=== PATIENT | female | born 1950 ===

== ENCOUNTER → 2022-01-19 10:14 | Outpatient (BNVA) | payer MEDICARE, SELFPAY | PROVIDERS: PCP Pediatrics; Visit Provider Internal Medicine | DX: J44.9 Chronic obstructive pulmonary disease, unspecified (principal); R09.02 Hypoxemia; F17.200 Nicotine dependence, unspecified, uncomplicated; Z99.81 Dependence on supplemental oxygen | CPT/HCPCS: 99202 ==

== ENCOUNTER 2022-02-22 09:48 | Outpatient (REF) | payer MEDICARE, SELFPAY ==
--- NOTE | 2022-02-22 15:19 | PFT_ITS ---
INDICATION: Dyspnea. SPIROMETRY: FEV1 to FVC of 56% with an FEV1 of 0.96 L, which is 43% predicted and an FVC of 1.72 L, which is 57% predicted. No significant response to bronchodilators noted. Significant small airways disease noted. Maximum voluntary ventilation 34% predicted. LUNG VOLUMES: Total lung capacity 76% predicted. DIFFUSING CAPACITY: DLCO 27% predicted. COMPARISONS: None. INTERPRETATION: There is an obstructive ventilatory defect consistent with severe COPD. No significant response to bronchodilators noted. Significant small airways disease noted and a severe decrease in maximum voluntary ventilation secondary to likely deconditioning, although cannot rule out neuromuscular conditions. Lung volumes also demonstrate a restrictive ventilatory defect consistent with mild restrictive lung disease. Therefore, need to consider underlying parenchymal lung conditions. The patient has a very severe diffusion impairment, likely secondary to both the obstructive and restrictive conditions. Clinical correlation warranted. Parker Bernal MD MR/MODL / [id number]
== END 2022-02-22 09:49 | disposition home or self-care (01) ==
LOC: HO.RESP 09:48
PROVIDERS: PCP Pediatrics; Visit Provider Internal Medicine
DX: J44.9 Chronic obstructive pulmonary disease, unspecified (principal); F17.200 Nicotine dependence, unspecified, uncomplicated
CPT/HCPCS: 94060; 94727; 94729; 99212

== ENCOUNTER 2022-03-11 13:22 | Outpatient (REF) | payer MEDICARE, SELFPAY ==
--- NOTE | ~2022-03-11 | CT_ITS ---
EXAMINATION: CT CHEST SCREENING CLINICAL INFORMATION: 50 pack-year history. Current smoker. COMPARISON: Previous chest CT January 2019 TECHNIQUE: Multidetector volumetric CT imaging of the chest is performed without contrast using low dose technique. Additional 2D coronal and sagittal reformatted images and axial 3D maximum intensity projection (MIP) images are generated on the CT workstation. This CT examination was performed using dose optimization techniques as appropriate, variously including the following: *Automated exposure control *Adjustment of mA and/or kV according to patient size (this includes techniques or standardized protocols for targeted exams where dose is matched to indication/reason for exam; i.e. extremities or head) *Use of iterative reconstruction technique DLP: 32 mGy-cm FINDINGS: LUNGS: There is evidence of severe bullous emphysema involving the bilateral upper lobes and some of the right middle lobe. There are cystic changes seen in both lower lobes. There is new linear high attenuation seen in the medial right upper lobe adjacent to the mediastinum suggestive of postsurgical change/surgical staple line. There is a new irregular linear parenchymal density seen in the left upper lobe. This measures 5 x 3.5 cm in transverse and AP dimension axial image 348 series 5. This is seen in the inferior lingula along the pleural fissure and is questionable for thick bandlike scarring or subsegmental atelectasis. There is crowding of the lung markings at the lung bases in the right middle and bilateral lower lobes. There is a 3 mm right upper lobe nodule axial image 328 series 5. There is a 3 mm right upper lobe nodule axial image 357 series 5. There is a 4 mm left lower lobe nodule axial image 408 series 5 that is stable. There is an oval-shaped 6 x 10 mm left lower lobe nodule axial image 416 series 5 that is stable. There is a 4 mm left lower lobe nodule axial image 429 series 5 that is stable. There is scarring or subsegmental atelectasis seen at the lung bases. There is mild focal traction bronchiectasis at the lung bases as well. No endobronchial or endotracheal lesion. MEDIASTINUM: There are bilateral calcified thyroid nodules that are stable. There is coronary artery calcification. The thoracic aorta is tortuous. The mediastinum is otherwise normal. PLEURA: There is no pleural effusion. No pleural mass or thickening. AXILLA: No lymphadenopathy. UPPER ABDOMEN: Unremarkable OSSEOUS STRUCTURES: Unremarkable. CT/CT lung screening IMPRESSION: Severe bullous emphysema. New postsurgical changes to the medial right upper lobe. New thick linear bandlike density in the inferior segment of the lingula adjacent to the fissure probably representing scarring or subsegmental atelectasis. Stable left lower lobe pulmonary nodules. 2 new small 3 mm right upper lobe nodules. Coronary artery calcification. ASSESSMENT: Lung-RADS category 2: Benign RECOMMENDATION: Annual low-dose chest CT follow-up recommended.
== END 2022-03-11 13:23 | disposition home or self-care (01) ==
LOC: HO.CT 13:22
PROVIDERS: PCP Pediatrics; Visit Provider Physician Assistant Medical
DX: Z12.2 Encounter for screening for malignant neoplasm of respiratory organs (principal); F17.210 Nicotine dependence, cigarettes, uncomplicated
CPT/HCPCS: 71271; G0296

== ENCOUNTER 2022-06-16 07:33 | Outpatient (REF) | payer MEDICARE, SELFPAY ==
[2022-06-16 07:46] LABS: MANUAL DIFF FLAG NO
[2022-06-16 07:59] LABS: Basophils Percent Auto 0.6 % (0-2); Eosinophils Absolute Auto 0.1 X10*3/uL (0.0-0.4); Eosinophils Percent Auto 0.9 % (0-4); Hematocrit 45.2 % (37.0-47.0); Hemoglobin 15.3 g/dl (12.0-16.0); Imm Gran Abs Auto 0.02 X10*3/uL (0.00-0.03); Imm Gran Pct Auto 0.4 % (0.0-0.4); Immature Retic Fraction 6.5 % (3.0-15.9); Lymphocytes Absolute Auto 1.5 X10*3/uL (1.2-4.9); Mean Corpuscular HGB Conc 33.8 g/dl (31.0-35.0); Mean Corpuscular Hemoglobin 30.6 pg (27.0-33.0); Mean Corpuscular Volume 90.4 fL (80.0-98.0); Mean Platelet Volume 9.6 fL (9.4-12.3); Monocytes Absolute Auto 0.6 X10*3/uL (0.1-1.2); Monocytes Percent Auto 10.7 % (2-11); Neutrophils Absolute Auto 3.2 x10*3/uL (2.0-8.3); Neutrophils Percent Auto 59.4 % (45-73); Platelet Count 295 X10*3/uL (160-400); Red Cell Distribution Width 13.2 % (11.0-16.0); Retic HGB Equivalent 36.4 pg (30.0-35.0); Reticulocyte Percent 1.4 % (0.5-1.8); Reticulocytes Absolute 0.068 X10*6/uL (0.026-0.095); White Blood Count 5.4 X10*3/uL (4.8-10.8)
[2022-06-16 08:12] LABS: Appearance Urine CLEAR; Color Urine YELLOW; Glucose Urine UA NEG (NEG); Leukocyte Esterase Urine 1+ (NEG); Nitrite Urine POS (NEG); PH 5.5 (5.0-8.0); Specific Gravity - Urine >= 1.030 (1.005-1.025); Urine Blood TRACE (NEG); Urine Ketones NEG (NEG); Urine Protein NEG (NEG-TRACE)
[2022-06-16 08:35] LABS: Hyaline Casts Urine 0-2 /LPF; Squamous Epithelial Cell Urine 1+ /LPF
[2022-06-16 08:36] LABS: Bacteria Urine 3+ /LPF
[2022-06-16 08:39] LABS: Alanine Aminotransferase 7 U/L (0-31); Alkaline Phosphatase 60 U/L (39-117); Anion Gap 12 (12-20); Aspartate Amino Transferase 11 U/L (5-31); Bilirubin Total 0.8 mg/dL (0.0-1.0); Blood Urea Nitrogen 14 mg/dL (9-16); Calcium 9.1 mg/dL (8.4-10.2); Carbon Dioxide 23 mmol/L (22-29); Chloride 108 mmol/L (96-108); Cholesterol 195 mg/dL; Estimated Glomerular Filt Rate > 60; Glucose Random 93 mg/dL (60-115); HDL Cholesterol 38 mg/dL; Iron 113 mcg/dL (30-160); LDL Cholesterol Calculated 136 mg/dl; Percent Iron Saturation 48 % (15-50); Potassium 4.3 mmol/L (3.3-5.1); Sodium 139 mmol/L (135-145); Total Iron Binding Capacity 235 mcg/dL (228-428); Total Protein 6.5 g/dL (6.5-8.0); Triglycerides 109 mg/dL; Unsaturated Iron Binding 122 ug/dL
[2022-06-16 09:02] LABS: Ferritin 66 ng/mL (10-250); Free T4 (Free Thyroxine) 1.05 ng/dL (0.71-1.85); Thyroid Stimulating Hormone 1.67 uIU/mL (0.32-4.0); Vitamin D 25-OH Total 21.3 ng/mL (>30)
[2022-06-16 10:24] LABS: Folate 9.2 ng/mL (> or = 4.0); Vitamin B12 315 pg/mL (200-900)
== END 2022-06-16 07:34 | disposition home or self-care (01) ==
LOC: HO.LAB 07:33
PROVIDERS: PCP Internal Medicine; Visit Provider Internal Medicine
DX: J44.9 Chronic obstructive pulmonary disease, unspecified (principal); E78.00 Pure hypercholesterolemia, unspecified
CPT/HCPCS: 36415; 80053; 80061; 81001; 82306; 82607; 82728; 82746; 83540; 84439; 84443; 85025; 85045

== ENCOUNTER 2022-06-21 08:00 | Outpatient (REF) | payer MEDICARE, SELFPAY ==
--- NOTE | ~2022-06-21 | MM_ITS ---
EXAMINATION: BONE DENSITOMETRY CLINICAL INDICATION: Age-related osteoporosis without current pathological fracture. COMPARISON: None (current study represents initial baseline exam). TECHNIQUE: Using a [employer] DXA System (software version: 13.1) manufactured by [employer], dual-energy x-ray absorptiometry was performed of the lumbar spine and left hip. The images are of good technical quality. Summary results are attached. FINDINGS: AP SPINE L1-L4: BMD 1.047 g/cm2, Z-score 1.1, T-score -1.1, osteopenia. LEFT FEMUR, NECK: BMD 0.756 g/cm2, Z-score 0.0, T-score -2.0, osteopenia. LEFT FEMUR, TOTAL: BMD 0.854 g/cm2, Z-score 0.6, T-score -1.2, osteopenia. IDENTIFIED RISK FACTORS: Menopause, tobacco use (current smoker). HISTORY OF FRACTURE: None listed. MEDICATIONS: None listed. MM/XR DEXA axial skeleton IMPRESSION: 1. DIAGNOSIS: Osteopenia based on the lowest T-score value of -2.0 in the femoral neck applying World Health Organization criteria. 2. 10-YEAR FRACTURE RISK PREDICTION, FRAX: Major osteoporotic fracture (clinical spine, forearm, hip or shoulder) 10.6%. Hip fracture 3.6%. 3. Treatment Recommendations: NOF guidelines recommend consideration for treatment in postmenopausal women and men age 50 and older presenting with the following: -A hip or vertebral (clinical or morphometric) fracture. -T-score less than or equal to -2.5 at the femoral neck or spine after appropriate evaluation to exclude secondary causes. -Low bone mass at the hip or spine and a 10-year fracture probability by FRAX of greater than or equal to 3% for hip fracture or greater than or equal to 20% for major osteoporotic fracture based on the [place] adapted WHO algorithm. 4. Other Recommendations: All treatment decisions require clinical judgment and consideration of individual patient factors, including patient preferences, comorbidities, previous drug use, risk factors not captured in the FRAX model (e.g. frailty, falls, vitamin D deficiency, increased bone turnover, interval significant decline in bone density) and possible under or overestimation of fracture risk by FRAX. Additional medical evaluation for secondary cause of low bone mineral density may be appropriate. FUTURE SCAN RECOMMENDATION: People with diagnosed cases of osteoporosis or at high risk for fracture should have regular bone mineral density tests. For patients eligible for Medicare, routine testing is allowed once every 2 years. The testing frequency can be increased to one year for patients who have rapidly progressing disease, those who are receiving or discontinuing medical therapy to restore bone mass, or have additional risk factors.
== END 2022-06-21 08:01 | disposition home or self-care (01) ==
LOC: HO.MAMMO 08:00
PROVIDERS: PCP Internal Medicine; Visit Provider Internal Medicine
DX: Z13.820 Encounter for screening for osteoporosis (principal); M81.0 Age-related osteoporosis without current pathological fracture; Z78.0 Asymptomatic menopausal state
CPT/HCPCS: 77080

== ENCOUNTER → 2022-08-31 10:36 | Outpatient (BNVA) | payer MEDICARE, SELFPAY | PROVIDERS: PCP Internal Medicine; Visit Provider Internal Medicine | DX: J44.9 Chronic obstructive pulmonary disease, unspecified (principal); R06.09 Other forms of dyspnea; R09.02 Hypoxemia; Z99.81 Dependence on supplemental oxygen; Z87.891 Personal history of nicotine dependence | CPT/HCPCS: 99212 ==

== ENCOUNTER → 2023-01-03 10:19 | Outpatient (BNVA) | payer MEDICARE, SELFPAY | PROVIDERS: PCP Internal Medicine; Visit Provider Internal Medicine | DX: J44.9 Chronic obstructive pulmonary disease, unspecified (principal); R91.8 Other nonspecific abnormal finding of lung field; R09.02 Hypoxemia; F17.210 Nicotine dependence, cigarettes, uncomplicated; Z99.81 Dependence on supplemental oxygen | CPT/HCPCS: 99212 ==

== ENCOUNTER → 2023-01-11 07:42 | Outpatient (BNVA) | payer MEDICARE, SELFPAY | PROVIDERS: PCP Internal Medicine; Referring Provider Internal Medicine; Visit Provider Physician Assistant | DX: R19.5 Other fecal abnormalities (principal); J44.9 Chronic obstructive pulmonary disease, unspecified; Z79.899 Other long term (current) drug therapy | CPT/HCPCS: 99202 ==

== ENCOUNTER 2023-04-27 10:40 | Outpatient (REF) | payer MEDICARE, SELFPAY ==
--- NOTE | ~2023-04-27 | MM_ITS ---
EXAMINATION: MM SCREENING DIGITAL BREAST TOMOSYNTHESIS, BILATERAL CLINICAL INFORMATION: Screening. Asymptomatic. The lifetime risk of breast cancer based on the Tyrer-Cuzick Model is is under 5%. COMPARISON: Outside mammography (2-D images): 04/03/2021, 06/01/2019, 03/31/2018 ([place]). TECHNIQUE: Digital breast tomosynthesis is performed in both the craniocaudal and mediolateral oblique views along with computer-aided detection (CAD). Synthesized 2D images are generated from the tomosynthesis. FINDINGS: The breasts are heterogeneously dense, which may obscure small masses (ACR BI-RADS breast composition Category c). Breast tissue composition borders on average fibroglandular and appears decreased from prior outside exams. No abnormal calcifications. The axilla and skin contours are unremarkable. Left breast parenchymal pattern is similar to prior studies. Right MLO view has subtle asymmetry upper quadrant 5 cm from nipple, likely island of fibroglandular tissue among other involuting parenchymal density and/or summation artifact. Patient will be recalled for additional imaging. MM/MM tomosynthesis screening BI IMPRESSION: Right: -Asymmetric density mid upper breast on MLO view likely island of fibroglandular tissue/summation artifact. Left: -No significant changes from prior exam. ASSESSMENT: BI-RADS 0: Incomplete - Need Additional Imaging Evaluation RECOMMENDATION: 1. Additional views right breast (spot MLO, standard ML). 2. Targeted ultrasound if warranted after review of the additional views. 3. Radiology department staff will contact the patient for additional imaging. This patient's information was entered into a reminder system with a target due date for their next mammogram.
== END 2023-04-27 10:41 | disposition home or self-care (01) ==
LOC: HO.MAMMO 10:40
PROVIDERS: Visit Provider Internal Medicine
DX: Z12.31 Encounter for screening mammogram for malignant neoplasm of breast (principal)
CPT/HCPCS: 77063; 77067

== ENCOUNTER 2023-05-22 09:33 | Outpatient (REF) | payer MEDICARE, SELFPAY ==
--- NOTE | ~2023-05-22 | CT_ITS ---
EXAMINATION: CT CHEST WITHOUT CONTRAST CLINICAL INFORMATION: Follow-up pulmonary nodule COMPARISON: Previous chest CT scans most recent February 2022 TECHNIQUE: Multidetector volumetric CT imaging of the chest was done. Axial MIP volume rendering provided. Sagittal and coronal reformatted images were obtained. This CT examination was performed using dose optimization techniques as appropriate, variously including the following: *Automated exposure control *Adjustment of mA and/or kV according to patient size (this includes techniques or standardized protocols for targeted exams where dose is matched to indication/reason for exam; i.e. extremities or head) *Use of iterative reconstruction technique DLP: 88 mGy-cm FINDINGS: LUNGS: Surgical staple line along the medial right upper lobe. Severe bullous emphysema. Right upper lobe is essentially replaced with bullae and there is a compression of the right middle and right lower lobes. There is almost complete replacement of the left upper lobe from bullae. Severe bullous emphysematous changes at the superior segment of the left lower lobe as well. Right diaphragmatic hernia containing fat. There is subsegmental atelectasis at the right lower lobe adjacent to the diaphragm. There is a new linear parenchymal density in the anterior segment of the left upper lobe axial image 166 series 5 probably representing atelectasis. There is a density in the left upper lobe measuring 3 x 5 mm axial image 304 series 5 questionable for atelectasis. There is atelectasis along the left pleural fissure that is stable. There is question of a a new 3 mm left lingular nodule axial image 343 series 5. There is a 4 mm left lower lobe nodule axial image 394 series 5 that is stable. There is a 4 mm peripheral lateral left lower lobe nodule axial image 397 series 5 that is stable. There is a 5 x 7 mm left lower lobe nodule axial image 403 series 5 that is stable. Residual 4 mm left lower lobe nodule axial image 406 series 5 that is stable. There is a 5 mm left lower lobe nodule axial image 416 series 5 that is stable. MEDIASTINUM: Enlarged heterogeneous thyroid gland with multiple calcifications. Enlarged pulmonary arteries, main pulmonary artery measuring 3.2 cm. Atherosclerotic disease. Upper normal-size tortuous thoracic aorta. Normal heart size. Moderate to severe coronary artery calcification. No pericardial effusion. No enlarged hilar or mediastinal lymph nodes. CORONARY ARTERY CALCIFICATION: Moderate to severe PLEURA: There is no pleural effusion. No pleural mass or thickening. AXILLA: No lymphadenopathy. UPPER ABDOMEN: Atherosclerotic disease. OSSEOUS STRUCTURES: Unremarkable. CT/CT chest wo IV con IMPRESSION: Severe bullous emphysema. Question new 3 mm lingular nodule. Otherwise left lower lobe nodules are stable. New areas of probable atelectasis in the left upper lobe. Fleischner guidelines were followed.
== END 2023-05-22 09:34 | disposition home or self-care (01) ==
LOC: HO.CT 09:33
PROVIDERS: PCP Internal Medicine; Visit Provider Internal Medicine
DX: R91.8 Other nonspecific abnormal finding of lung field (principal)
CPT/HCPCS: 71250

== ENCOUNTER → 2023-05-25 13:03 | Outpatient (BNVA) | payer MEDICARE, SELFPAY | PROVIDERS: PCP Internal Medicine; Visit Provider Internal Medicine | DX: J44.9 Chronic obstructive pulmonary disease, unspecified (principal); R91.8 Other nonspecific abnormal finding of lung field; R09.02 Hypoxemia; Z99.81 Dependence on supplemental oxygen | CPT/HCPCS: 99212 ==

== ENCOUNTER 2023-06-15 07:38 | Day surgery (SDC) | payer MEDICARE, SELFPAY ==
[2023-06-12 15:02] VITALS: BMI 20.4
--- NOTE | 2023-06-14 10:28 | HO.ANESPROP2 ---
HPI - Anesthesia Eval Consult details Narrative: 73yo F for Colonoscopy Pulmo optimized Supplemental O2 @ 2L prn PMFSH Active Problems Active Problems: All Active Problems (Updated 06/06/23 @ 10:54 by Chelsy Gallagher MD) Breast cancer screening by mammogram (Acute) Vitamin D deficiency (Acute) Positive colorectal cancer screening using Cologuard test (Acute) Lump of skin of back (Acute) Osteopenia (Acute) Medicare annual wellness visit, initial (Acute) COVID-19 virus infection (Acute) Colon cancer screening declined (Acute) Pulmonary nodules (Acute) Hypoxemia requiring supplemental oxygen (Acute) COPD (chronic obstructive pulmonary disease) (Acute) Past Medical History Medical History (Updated 06/06/23 @ 10:54 by Chelsy Gallagher MD) COPD (chronic obstructive pulmonary disease) Dyspnea on minimal exertion History of pneumothorax (~2018) Hypoxemia requiring supplemental oxygen Personal history of nicotine dependence Quit smoking within past year Tobacco abuse Family History Family History Mother Breast cancer Father Cancer Surgical History Surgical History History of lumpectomy of left breast (~2012) History of lung surgery (~2018) History of tonsillectomy History of tubal ligation (~1979) Social History Social History Housing: Apartment Alcohol intake: never Patient Tobacco Use Status: Former Tobacco user Tobacco use type: Cigarette Years Smoked: (onset 19yo, max 1-2ppd, x 46yrs, quit for 6yr, now 1/2ppd - 60pyh) 7 cigar e-Cigarette/Vaping Use: Never Used Second Hand Smoke Exposure: Yes service: No Current occupational status: retired Cognitive needs: No Hearing needs: No Vision needs: Yes Meds Allergies Allergy/AdvReac Type Severity Reaction Status Date / Time No Known Allergies Allergy Verified 05/25/23 13:25 [No Known Allergies*] Home Medications Medication Instructions Recorded Confirmed Last Taken Type calcium carbonate 600 mg calcium 600 mg PO DAILY 10/17/22 04/19/23 Unknown History (1,500 mg) tablet (Calcium) cholecalciferol (vitamin D3) 50 50 mcg PO DAILY 10/17/22 04/19/23 Unknown History mcg (2,000 unit) capsule Exam Exam Date and Time: June 14, 2023 1028 Height,Weight and Vital Signs: Height 5 ft 4 in Weight 53.977 kg Assessment and Plan Assessment Anesthesia Assessment: Chart Reviewed
[2023-06-15 08:59] VITALS: BP 138/86; PULSE 70; RESP 16; TEMP 37; O2SAT 93; BMI 20.4
--- NOTE | 2023-06-15 09:10 | PC.NURSE ---
Patient in preop. When asked if she has ever filled out paperwork stating she has a DNR order, she stated yes . No paperwork found scanned into computer system. Patient does not have paperwork with her currently. Patient states one of her Health Care Proxy's is her son Dereck, phone [phone]. Anesthesiologist and OR nurse made aware.
[2023-06-15] MEDS: Lactated Ringers 1,000 ML 100 ML IVCONT (09:22)
--- NOTE | 2023-06-15 09:24 | MHC.SHP ---
Pre-Procedural Eval Section A Date of Service: 06/15/23 Section B Chief Complaint: Positive cologuard Details of Present Illness: 73y.o F with positive cologuard in Nov 2022. Hx of advanced COPD. Relevant Social History: Tobacco Use (Former - 60 PY. ) Present Medications: see Short Stay Collaborative assessment Allergies: Allergies Allergy/AdvReac Type Severity Reaction Status Date / Time No Known Allergies Allergy Verified 05/25/23 13:25 [No Known Allergies*] Review of Systems Review of Systems Comment: Ten point ROS negative Exam Exam Comment: Gen appear: No acute distress HEENT: no icterus Chest: No overt resp distress Abd: soft, nontender, nondistended Psych: Stable affect, answering questions appropriately Neuro: A/Ox3 noted to move all extremities spontaneously Ext: no peripheral edema Plan I have reviewed the history and physical and performed a pertinent physical examination on my patient. No changes have occurred unless specified. Time Spent With Patient Time: Total time managing care of this patient today ____ minutes.
--- NOTE | 2023-06-15 10:21 | P.OP_ITS ---
Operative Note Operative Note Date of Service: 06/15/23 Narrative: Procedure: Colonoscopy Indication: Positive cologuard Endoscopist: Gita Bejarano MD Anesthesia Provider: Opal Cross MD Anesthesia type: MAC Instrument: Olympus [id number]-H190L Consent: Indication, risks vs benefits, and alternatives were discussed with the patient who gave written informed consent to proceed. EKG, pulse, pulse oximetry and blood pressure were monitored throughout the procedure. Please see anesthesia flowsheet. Procedure: The patient was brought to the procedure room and placed in the left lateral decubitus position. IV medications were administered by the anesthesia provider in attendance. A digital rectal exam was performed which was abnormal for ext hemorrhoids. The colonoscope was then inserted through the anus and advanced through the colon to the cecum at 75 cm,and terminal ileum. Mucosa was carefully examined under high definition white light as the instrument was slowly withdrawn in a retrograde panoramic fashion. Retroflexion was performed in rectum. The procedure was not difficult. There were no immediate obvious complications. The quality of the prep was BBPS: 3+2+3 = adequate Withdrawal time 15 minutes. Limitations: No limitations. Findings: Mucosa: Normal to cecum and terminal ileum. Protruding lesions: * 1 sessile polyp of size 3 mm in cecum. Cold snare polypectomy was performed. The polyp was completely removed and retrieved. * 1 sessile polyp of size 6 mm in sigmoid colon. Cold snare polypectomy was performed. The polyp was completely removed and retrieved. * Large internal hemorrhoids [without] stigmata of recent bleeding. Excavated lesions: * Diffuse diverticulosis throughout whole colon, L>R. Impression: 1. Normal colon and terminal ileum mucosa 2. Total of 2 polyps removed from cecum and sigmoid colon. 3. External and internal hemorrhoids 4. Diverticulosis Recommendations: - Follow path results. - Future colonoscopy for asymptomatic colorectal cancer screening not recommended due to age and comorbidities.
[2023-06-15 11:06] VITALS: BP 137/81; PULSE 68; RESP 16; TEMP 36.3; O2SAT 93
[2023-06-15 11:21] VITALS: BP 146/76; PULSE 60; RESP 16; TEMP 36.4; O2SAT 98
== END 2023-06-15 11:38 | disposition home or self-care (01) ==
PROVIDERS: PCP Internal Medicine; Visit Provider Internal Medicine
PROC: 0DJD8ZZ Inspection of Lower Intestinal Tract, Via Natural or Artificial Opening Endoscopic (ICD-10-PCS; CPT 45378; principal; 2023-06-15 10:20)
DX: R19.5 Other fecal abnormalities (principal); D12.0 Benign neoplasm of cecum; K63.5 Polyp of colon; K57.30 Diverticulosis of large intestine without perforation or abscess without bleeding; K64.8 Other hemorrhoids; K64.4 Residual hemorrhoidal skin tags; J44.9 Chronic obstructive pulmonary disease, unspecified; R09.02 Hypoxemia; Z99.81 Dependence on supplemental oxygen; R91.8 Other nonspecific abnormal finding of lung field; Z79.51 Long term (current) use of inhaled steroids; Z79.899 Other long term (current) drug therapy; Z87.891 Personal history of nicotine dependence
CPT/HCPCS: 45385; 88305

== ENCOUNTER → 2023-06-15 07:38 | Outpatient (BNV) | payer MEDICARE, SELFPAY | PROVIDERS: PCP Internal Medicine; Visit Provider Internal Medicine | DX: Z12.11 Encounter for screening for malignant neoplasm of colon (principal); R19.5 Other fecal abnormalities; D12.0 Benign neoplasm of cecum; D12.5 Benign neoplasm of sigmoid colon; K57.30 Diverticulosis of large intestine without perforation or abscess without bleeding; K64.8 Other hemorrhoids | CPT/HCPCS: 45385 ==

== ENCOUNTER 2023-06-29 08:15 | Outpatient (AMB) | payer MEDICARE, SELFPAY ==
[2023-06-29 08:20] VITALS: BP 149/70; PULSE 62; BMI 20.7
--- NOTE | 2023-06-29 08:20 | MHC.OFFVIS ---
Intake Vital Signs 06/29/23 08:20 Height 5 ft 4 in Weight 120 lb 13.013 oz BMI 20.7 BP 149/70 H Blood Pressure Location Lt brachial Position Sitting Pulse 62 Intake Visit Reasons: S/P [place]; Dr. Bejarano Intake Note: Wanda presents in office as a est.patient for a post-op for colo PT CC: pt reports having no concerns pt denies any other GI Issues Delinquency Counselor Required: No Accompanied by: Self / Same As Patient Allergies No Known Allergies [No Known Allergies*] Allergy (Verified 06/29/23 08:26) HPI HPI Comments History of Present Illness Details A 73-year-old female follows up after recent screening colonoscopy with polypectomy He tolerated procedure very well She has no GI complaints, normal bowel pattern appetite is good Reviewed procedure report and pathology No nausea, vomiting, hematemesis, hematochezia fever chills PFSH Medical History COPD (chronic obstructive pulmonary disease) Dyspnea on minimal exertion History of pneumothorax (~2018) Hypoxemia requiring supplemental oxygen Personal history of nicotine dependence Quit smoking within past year Tobacco abuse Surgical History History of lumpectomy of left breast (~2012) History of lung surgery (~2018) History of tonsillectomy History of tubal ligation (~1979) Hx of colonoscopy Family History Mother Breast cancer Father Cancer Social History Housing: Apartment Alcohol intake: never Patient Tobacco Use Status: Former Tobacco user Tobacco use type: Cigarette Cigarette Packs Per Day: 1 Cigarettes Per Day: 20.0 Years Smoked: 55 e-Cigarette/Vaping Use: Never Used Second Hand Smoke Exposure: Yes service: No Current occupational status: retired Cognitive needs: No Hearing needs: No Vision needs: Yes Review of Systems Const All systems reviewed & are unremarkable except as noted in HPI and below Card Denies chest pain and Denies dyspnea Resp Denies dyspnea GI Denies abdominal pain Physical Exam Vital Signs: Last Vital Signs Pulse 62 06/29/23 08:20 BP 149/70 H 06/29/23 08:20 BMI result Body Mass Index 20.7 Const General: cooperative, healthy appearing, comfortable and no acute distress Orientation/consciousness: patient oriented x3 Resp Effort & Inspection: normal respiratory effort and able to speak in complete sentences Skin General skin exam: no rashes or lesions noted Neuro General: patient oriented x3 Extrem General: Yes full ROM Psych Appearance: grossly normal and well kempt Mental Status: mental status grossly normal Speech and movement: Normal speech and movement present and Clear speech present Affect: normal affect Attitude: cooperative Thought process: Normal thought process present Thought content: Normal thought content present Insight: Good insight present (Psych) Judgement: Good judgement present (Psych) Results Reviewed Results Reviewed: imitations: No limitations.? Findings: Mucosa: Normal to cecum and terminal ileum. Protruding lesions: 1 sessile polyp of size 3 mm in cecum. Cold snare polypectomy was performed. The polyp was completely removed and retrieved. 1 sessile polyp of size 6 mm in sigmoid colon. Cold snare polypectomy was performed. The polyp was completely removed and retrieved. Large internal hemorrhoids [without] stigmata of recent bleeding. Excavated lesions: Diffuse diverticulosis throughout whole colon, L>R. Impression: 1. Normal colon and terminal ileum mucosa 2. Total of 2 polyps removed from cecum and sigmoid?colon. 3. External and internal hemorrhoids 4. Diverticulosis Recommendations: - Follow path results. - Future colonoscopy for asymptomatic colorectal cancer screening not recommended due to age and comorbidities. Name:?Wanda Patino Age/Sex: 73/F Attending: Gita Bejarano MD : 1950 Submitted by: Gita Bejarano MD Copies to: Chelsy Gallagher MD MR #: [id number] ? Status: DEP [facility] Collected: 06/15/23 Location: [facility] [[email or web address]] Received: 06/15/23 Diagnosis A.? Cecum, polypectomy:? Fragments of tubular adenoma; negative for high-grade dysplasia or carcinoma. B.? Colon, sigmoid, polypectomy:? Hyperplastic mucosal polyp. Clinical History Pre-Op Dx:? Positive cologuard Post-Op Dx: Hemorrhoids, colon polyps, diverticulosis Assessment & Plan Assessment & Plan (1) Positive colorectal cancer screening using Cologuard test: Comment: November 2022- Colonoscopy- tubular adenoma hemorrhoids Code(s): R19.5 - Other fecal abnormalities (2) Tubular adenoma: Code(s): D36.9 - Benign neoplasm, unspecified site Plan: 5 year repeat - health determines (3) Diverticulosis of colon: Code(s): K57.30 - Diverticulosis of large intestine without perforation or abscess without bleeding (4) Internal hemorrhoids: Code(s): K64.8 - Other hemorrhoids Plan: Maintain high-fiber diet avoid straining Patient Instructions: Pleasant, alert, healthy 73-year-old female follows up after recent colonoscopy with polypectomy pathology revealing tubular adenoma Health determine, repeat asymptomatic colonoscopy 5 years Maintain high-fiber diet with diverticulosis as well as Internal hemorrhoids. Diverticulosis/diverticulitis ER protocol Coding Level of Care Code Est Pt Level 3 (70375) Diagnoses Positive colorectal cancer screening using Cologuard test R19.5 Tubular adenoma D36.9 Diverticulosis of colon K57.30 Internal hemorrhoids K64.8 Time Spent (min) 25
== END 2023-06-29 08:48 | disposition home or self-care (01) ==
PROVIDERS: Visit Provider Physician Assistant
DX: R19.5 Other fecal abnormalities (principal); D36.9 Benign neoplasm, unspecified site; K57.30 Diverticulosis of large intestine without perforation or abscess without bleeding; K64.8 Other hemorrhoids
CPT/HCPCS: 99213

== ENCOUNTER → 2023-06-29 08:15 | Outpatient (BNVA) | payer MEDICARE, SELFPAY | PROVIDERS: Visit Provider Physician Assistant | DX: R19.5 Other fecal abnormalities (principal); D36.9 Benign neoplasm, unspecified site; K57.30 Diverticulosis of large intestine without perforation or abscess without bleeding; K64.8 Other hemorrhoids | CPT/HCPCS: 99212 ==

== ENCOUNTER 2023-10-23 10:41 | Outpatient (AMB) | payer MEDICARE, SELFPAY ==
[2023-10-23 10:43] VITALS: BP 142/80; PULSE 97; O2SAT 99; BMI 21.1
--- NOTE | 2023-10-23 10:43 | AM.OFFVISMDC ---
Intake Vital Signs 10/23/23 10:43 Height 5 ft 4 in Weight 123 lb 0.6 oz BMI 21.1 BP 142/80 H Blood Pressure Location Lt brachial Position Sitting Pulse 97 Pulse Source Pulse Oximeter Pulse Oximetry (%) 99 Oxygen Delivery Method Room Air Intake Visit Reasons: SWV [id number] Intake Note: Patient is here for an Annual Wellness Visit. [employer] Required: No Allergies No Known Allergies [No Known Allergies*] Allergy (Verified 10/23/23 10:54) Fall Risk Assessment Fall risk assessment: No Falls in past year Date Fall Risk Assessed: 10/23/23 HPI HPI Comments History of Present Illness Details 73-year-old female past medical history significant for vitamin-D deficiency, osteopenia, pulmonary nodules, COPD, hypoxemia requiring supplemental O2. 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 TRIMBLE presents today for subsequent annual well visit. Patient up-to-date on all necessary health screenings. Declined, TD shot. UTD on flu and pna. [place] of care was reviewed with patient patient was provided with a written screening schedule. Patient states she has a healthcare proxy, encouraged to bring copy to office to be scanned to chart. Patient provided with MOLST form. [facility] Medical History COPD (chronic obstructive pulmonary disease) Dyspnea on minimal exertion History of pneumothorax (~2018) Hypoxemia requiring supplemental oxygen Personal history of nicotine dependence Quit smoking within past year Tobacco abuse Surgical History History of lumpectomy of left breast (~2012) History of lung surgery (~2018) History of tonsillectomy History of tubal ligation (~1979) Hx of colonoscopy Family History Mother Breast cancer Father Cancer Social History Housing: Apartment Alcohol intake: never Patient Tobacco Use Status: Former Tobacco user Tobacco use type: Cigarette Cigarette Packs Per Day: 1 Cigarettes Per Day: 20.0 Years Smoked: 55 e-Cigarette/Vaping Use: Never Used Second Hand Smoke Exposure: Yes service: No Current occupational status: retired Cognitive needs: No Hearing needs: No Vision needs: Yes Questionnaire Medicare Wellness Checkup [age] What gender do you identify with?: female During the past 4 weeks, how much have you been bothered by emotional problems such as feeling anxious, depressed, irritable, sad or downhearted, and blue?: not at all During the past 4 weeks, has your physical & emotional health limited your social activities with family, friends, neighbors, or groups?: not at all During the past 4 weeks, how much bodily pain have you generally had?: very mild pain During the past 4 weeks, was someone available to help you if you needed & wanted help?: yes, quite a bit During the past 4 weeks, what was the hardest physical activity you could do for at least 2 minutes?: moderate Can you get to places out of walking distance without help? (For eg., can you travel alone on buses, taxis or drive your car?): Yes Can you go shopping for groceries or clothes without someone's help?: Yes Can you prepare your own meals?: Yes Can you do your housework without help?: Yes Because of any health problems, do you need the help of another person with your personal care needs such as eating, bathing, dressing or getting around the house?: No Can you handle your own money without help?: Yes During the past 4 weeks, how would you rate your health in general?: very good During the past 4 weeks how have things been going for you?: pretty well Are you having difficulties driving your car?: no Do you always fasten your seat belt when you are in a car?: yes, usually During past 4 weeks, have you been bothered by the following: never: Falling or dizzy when standing up, Sexual problems?, Trouble eating well? and Problems using the telephone? and sometimes: Teeth or denture problems? and Tiredness or fatigue? Have you fallen 2 or more times in the past year?: No Are you afraid of falling?: No Are you a smoker?: no During the past 4 weeks, how many drinks of wine, beer, or other alcoholic beverages did you have?: no alcohol at all Do you exercise for about 20 minutes 3 or more times a week?: no, I usually do not exercise this much Have you been given information to help with the following?: no: Hazards in your house that might hurt you? and no: Keeping track of your medications? How often do you have trouble taking medicines the way you have been told to take them?: I always take medicine as prescribed How confident are you that you can control & manage most of your health problems?: very confident What is your race?: White Mini Mental State Exam (MMSE) Orientation What is the (year) (season) (date) (day) (month)?: year, season, date, day and month Score Score: 5 Activity of Daily Living Bathing - sponge bath, tub bath or shower: receives no assistance (gets in/out by self, if usual bathing means Dressing - getting clothes from closets & drawers, including inner/outer garments & fasteners.: gets clothes & gets completely dressed without help Toileting - going to the 'toilet room' for urine/bowel elimination & cleaning self/arranging clothes: goes to toilet room, cleans self, arranges clothes without help Transfer: moves in & out of bed and chair without help (may use support object) Continence: controls urination/bowel movements completely by self Feeding: feeds self without help Total Score: 0 Information obtained from: patient Using telephone: independent Traveling: independent Shopping: independent Preparing meals: independent Housework: independent Taking medicine: independent Managing money: independent PHQ-9 Over the last 2 weeks, how often have you been bothered by any of the following problems? 1. Little interest or pleasure in doing things: not at all 2. Feeling down, depressed, or hopeless: not at all 3. Trouble falling or staying asleep, or sleeping too much: not at all 4. Feeling tired or having little energy: several days 5. Poor appetite or overeating: not at all 6. Feeling bad about yourself - or that you are a failure or have let yourself or your family down: not at all 7. Trouble concentrating on things, such as reading the newspaper or watching television: not at all 8. Moving or speaking so slowly that other people could have noticed. Or the opposite - being so fidgety or restless that you have been moving around a lot more than usual: not at all 9. Thoughts that you would be better off or of hurting yourself in some way: not at all Total score: 1 Depression Screening Interpretation: Positive Depression Screening Done: Yes 97998 - PHQ-9 Billing: Yes Source: Developed by Drs. Brody Fitch, Curtis Ni and colleagues, with an educational lane from [employer]. GEOFF-7 AMB Questionnaire GEOFF-7 Date GEOFF - 7 assessed: 10/23/23 Feeling nervous, anxious, or on edge: 0 = Not at all Not being able to stop or control worryin = Not at all Worrying too much about different things: 0 = Not at all Trouble relaxin = Not at all Being so restless that it is hard to sit still: 0 = Not at all Becoming easily annoyed or irritable: 0 = Not at all Feeling afraid as if something awful might happen: 0 = Not at all Total GEOFF-7 score (0-4 normal; 5-9 mild; 10-14 moderate; 15-21 severe): 0 Source: Developed by Drs. Brody Fitch, Curtis Ni and colleagues, with an educational lane from [employer]. Thrive Questionnaire Date Thrive assessed: 11/22/22 Physical Exam Vital Signs: Last Vital Signs Pulse 97 10/23/23 10:43 BP 142/80 H 10/23/23 10:43 Pulse Ox 99 10/23/23 10:43 Oxygen Delivery Method Room Air 10/23/23 10:43 BMI result Body Mass Index 21.1 Const General: cooperative and no acute distress Orientation/consciousness: patient oriented x3 HEENT Ears: other (whisper test: pass) Neuro General: patient oriented x3 Gait exam (Neuro): Normal gait present Coordination: tandem gait normal and Romberg test negative Assessment & Plan Assessment & Plan (1) COPD (chronic obstructive pulmonary disease): Comment: (severe obstructive pulmonary disease - stable and controlled) May [address]23 CT scanSevere bullous emphysema. Question new 3 mm lingular nodule. Otherwise left lower lobe nodules are stable. New areas of probable atelectasis in the left upper lobe. Tx : Continue Trelegy 1 inhalation daily and Combivent Respimat 1 inhalation Q 6 hours p.r.n. for acute distress. Code(s): J44.9 - Chronic obstructive pulmonary disease, unspecified Plan: Continue to follow-up pulmonology. Continue on current inhalers. (2) Medicare annual wellness visit, subsequent: Code(s): Z00.00 - Encounter for general adult medical examination without abnormal findings Plan: Follow-up in 1 year. Patient reminded to get previously ordered blood work completed. Plan Patient declined follow-up in 6 months would like to be scheduled for 1 year. Quality Reporting (2019) Fall Risk Screening ([facility] 139) Last assessed Fall Risk: 10/23/23 Fall risk assessment: No Falls in past year Depression/Bipolar (159/160/161/177) PHQ-9: Total score: 1 Coding Level of Care Code Medicare Subsequent (G0439) Diagnoses COPD (chronic obstructive pulmonary disease) J44.9 Medicare annual wellness visit, subsequent Z00.00
== END 2023-10-23 11:17 | disposition home or self-care (01) ==
PROVIDERS: Visit Provider Nurse Practitioner Family
DX: J44.9 Chronic obstructive pulmonary disease, unspecified (principal); Z00.00 Encounter for general adult medical examination without abnormal findings
CPT/HCPCS: G0439

== ENCOUNTER 2023-10-31 09:19 | Outpatient (AMB) | payer MEDICARE, SELFPAY ==
--- NOTE | 2023-10-31 09:29 | A.OFFVIS_ITS ---
Intake Vital Signs 10/31/23 09:31 Height 5 ft 4 in Weight 122 lb BMI 20.9 BP 112/78 Blood Pressure Location Lt brachial Position Sitting Pulse 68 Pulse Source Pulse Oximeter Pulse Oximetry (%) 94 Oxygen Delivery Method Room Air Intake Visit Reasons: COPD Intake Note: pt is here for follow up and states her breathing is getting bad. [employer] Required: No Allergies No Known Allergies [No Known Allergies*] Allergy (Verified 10/31/23 09:38) Medication List - Last Reconciled 10/31/23 by Bhakti Garcia MD calcium carbonate (Calcium) 600 mg PO DAILY cholecalciferol (vitamin D3) 50 mcg PO DAILY ipratropium-albuterol 20-100 mcg/actuation (Combivent Respimat) 1 puff inhalation Q6H PRN Trelegy Ellipta 100-62.5-25 mcg (mhikdsajmye-aqxvgtpen-sapmehjv) 1 ea inhalation DAILY NS Do you need a note to return to daycare/school/sports/work: No HPI COPD HPI Details 73 YEARS OLD VERY PLEASANT FEMALE OF A [place], BEING FOLLOWED FOR ADVANCED CHRONIC OBSTRUCTIVE PULMONARY DISEASE. SHE USES TRELEGY 1 INHALATION DAILY AND ALSO COMBIVENT RESPIMAT 1 PUFF Q 6 HOURS P.R.N.. SHE HAS BEEN FREE OF ANY ACUTE INFECTION, SHE FEELS THAT GRADUALLY HER STRENGTH IS WEAKENING AND SHE GETS MORE SHORT OF BREATH ON WALKING AROUND IN THE HOUSE. HOWEVER SHE HAS NO SIGN OF ANY INFECTION, SHE HAS NOT REQUIRED TO USE OXYGEN SO FOR. [facility] Medical History Quit smoking within past year Dyspnea on minimal exertion Tobacco abuse History of pneumothorax (~2018) Personal history of nicotine dependence Hypoxemia requiring supplemental oxygen COPD (chronic obstructive pulmonary disease) Surgical History Hx of colonoscopy History of tubal ligation (~1979) History of lumpectomy of left breast (~2012) History of tonsillectomy History of lung surgery (~2018) Family History Mother Breast cancer Father Cancer Social History Housing: Apartment Alcohol intake: never Patient Tobacco Use Status: Former Tobacco user Tobacco use type: Cigarette Cigarette Packs Per Day: 1 Cigarettes Per Day: 20.0 Years Smoked: 55 e-Cigarette/Vaping Use: Never Used Second Hand Smoke Exposure: Yes service: No Current occupational status: retired Cognitive needs: No Hearing needs: No Vision needs: Yes Review of Systems Const All systems reviewed & are unremarkable except as noted in HPI and below Eyes Reports no additional complaints ENT Reports no additional complaints Card Denies chest pain, Denies irregular heart rhythm and Denies leg edema Resp Reports as per HPI GI Reports no additional complaints Reports no additional complaints Musc Reports no additional complaints Skin/Breast Reports system reviewed and no additional complaints, except as documented Neuro Reports no additional complaints Psych Reports no additional complaints Endo Reports no additional complaints Physical Exam Vital Signs: Last Vital Signs Pulse 68 10/31/23 09:31 BP 112/78 10/31/23 09:31 Pulse Ox 94 10/31/23 09:31 Oxygen Delivery Method Room Air 10/31/23 09:31 BMI result Body Mass Index 20.9 Const Other: Patient is of a thin build and looks comfortable, active . General: comfortable, no acute distress, alert and awake Orientation/consciousness: patient oriented x3 HEENT Head: Yes normal to inspection General nose exam: No nasal polyps present and No nasal discharge present Face and sinus: Yes sinuses nontender Mouth: oropharynx normal Teeth and gingiva: other (Multiple fillings and if you extractions are noted) Throat: Yes posterior oropharynx normal Eyes General: appearance normal, both eyes and all related structures Neck Neck: Yes normal visual inspection, Yes no lymphadenopathy, Yes trachea midline and Yes no JVD Thyroid: Thyroid normal Chest Chest palpation & inspection: normal inspection of the chest, normal palpation of entire chest wall and no tenderness Resp Other: Percussion note hyper-resonant on both sides. Breath sounds are very distant with prolonged expiratory phase but equal on both sides. No adventitious sounds are heard. Cardio Palpation: normal PMI Rate: regular rate Rhythm: regular rhythm Heart sounds: no gallops and no murmurs Peripheral pulses: Peripheral pulses 2+ throughout GI Palpation (GI): Soft to palpation, nontender, No hepatosplenomegaly present and no masses Auscultation: normal bowel sounds Back/Spine/Pelvis Thoracic/Lumbar Spine: thoracic and lumbar spine normal to inspection Skin General skin exam: no rashes or lesions noted Neuro General: patient oriented x3 and no focal motor deficits Cranial nerves: Yes CN's II-XII intact bilaterally Extrem General: Yes normal to inspection, Yes no clubbing, cyanosis or edema and Yes no calf tenderness Psych Appearance: grossly normal and well kempt Speech and movement: Normal speech and movement present Assessment & Plan Assessment & Plan (1) COPD (chronic obstructive pulmonary disease): Comment: (severe obstructive pulmonary disease - stable and controlled) May [address]23 CT scanSevere bullous emphysema. Question new 3 mm lingular nodule. Otherwise left lower lobe nodules are stable. New areas of probable atelectasis in the left upper lobe. Code(s): J44.9 - Chronic obstructive pulmonary disease, unspecified Plan: Tx : Continue Trelegy 1 inhalation daily and Combivent Respimat 1 inhalation Q 6 hours p.r.n. for acute distress. I REASSURED HER AND EXPLAINED THAT HER RESPIRATORY STATUS WAS FAIRLY STABLE AT THIS TIME. HAS BEEN ADVISED TO DO DEEP BREATHING EXERCISES 2 OR 3 TIMES A DAY. DISCUSSED ABOUT PULMONARY REHAB PROGRAM, BUT SHE IS NOT INCLINED TO PARTICIPATE IN THAT AT THIS TIME. (2) Hypoxemia requiring supplemental oxygen: Comment: (on O2 supplementation for the last few years but HAS NOT been using O2 most of the time -advised her to use O2 2 L/minute during the night, and p.r.n. during the daytime.) Code(s): R09.02 - Hypoxemia; Z99.81 - Dependence on supplemental oxygen Plan: ABOVE (3) Pulmonary nodules: Comment: February 2022 CT scan,Benign class-2 Code(s): R91.8 - Other nonspecific abnormal finding of lung field Plan: WILL CONTINUE IN THE ANNUAL LUNG SCREENING PROGRAM Coding Level of Care Code Est Pt Level 3 (34286) Diagnoses COPD (chronic obstructive pulmonary disease) J44.9 Hypoxemia requiring supplemental oxygen R09.02; Z99.81 Pulmonary nodules R91.8
[2023-10-31 09:31] VITALS: BP 112/78; PULSE 68; O2SAT 94; BMI 20.9
== END 2023-10-31 09:47 | disposition home or self-care (01) ==
PROVIDERS: PCP Internal Medicine; Visit Provider Internal Medicine
DX: J44.9 Chronic obstructive pulmonary disease, unspecified (principal); R09.02 Hypoxemia; Z99.81 Dependence on supplemental oxygen; R91.8 Other nonspecific abnormal finding of lung field
CPT/HCPCS: 99213

== ENCOUNTER → 2023-10-31 09:19 | Outpatient (BNVA) | payer MEDICARE, SELFPAY | PROVIDERS: PCP Internal Medicine; Visit Provider Internal Medicine | DX: J44.9 Chronic obstructive pulmonary disease, unspecified (principal); R91.8 Other nonspecific abnormal finding of lung field; R09.02 Hypoxemia; Z99.81 Dependence on supplemental oxygen | CPT/HCPCS: 99212 ==

== ENCOUNTER 2023-11-07 07:38 | Outpatient (REF) | payer MEDICARE, SELFPAY ==
[2023-11-07 07:54] LABS: MANUAL DIFF FLAG NO
[2023-11-07 08:47] LABS: Basophils Percent Auto 0.6 % (0-2); Eosinophils Absolute Auto 0.1 X10*3/uL (0.0-0.4); Eosinophils Percent Auto 1.9 % (0-4); Hematocrit 45.1 % (37.0-47.0); Hemoglobin 14.9 g/dl (12.0-16.0); Imm Gran Abs Auto 0.02 X10*3/uL (0.00-0.03); Imm Gran Pct Auto 0.4 % (0.0-0.4); Lymphocytes Absolute Auto 1.3 X10*3/uL (1.2-4.9); Mean Corpuscular Hemoglobin 30.7 pg (27.0-33.0); Mean Corpuscular Volume 92.8 fL (80.0-98.0); Mean Platelet Volume 9.8 fL (9.4-12.3); Monocytes Absolute Auto 0.5 X10*3/uL (0.1-1.2); Monocytes Percent Auto 10.8 % (2-11); Neutrophils Absolute Auto 2.7 x10*3/uL (2.0-8.3); Neutrophils Percent Auto 59.3 % (45-73); Platelet Count 339 X10*3/uL (160-400); Red Blood Count 4.86 X10*6/uL (4.20-5.50); Red Cell Distribution Width 12.5 % (11.0-16.0); White Blood Count 4.6 X10*3/uL (4.8-10.8)
[2023-11-07 09:26] LABS: Alanine Aminotransferase 10 U/L (0-31); Alkaline Phosphatase 53 U/L (39-117); Anion Gap 11 (12-20); Aspartate Amino Transferase 15 U/L (5-31); Bilirubin Total 0.7 mg/dL (0.0-1.0); Blood Urea Nitrogen 14 mg/dL (9-16); Calcium 9.5 mg/dL (8.4-10.2); Carbon Dioxide 28 mmol/L (22-29); Chloride 109 mmol/L (96-108); Cholesterol 210 mg/dL (<200); Estimated Glomerular Filt Rate > 60; Glucose Random 88 mg/dL (60-115); HDL Cholesterol 43 mg/dL (>40); LDL Cholesterol Calculated 150 mg/dL (<100); Potassium 4.3 mmol/L (3.3-5.1); Sodium 144 mmol/L (135-145); Total Protein 6.7 g/dL (6.5-8.0); Triglycerides 85 mg/dL (<150)
[2023-11-07 09:30] LABS: Thyroid Stimulating Hormone 1.33 uIU/mL (0.32-4.0); Vitamin D 25-OH Total 47.7 ng/mL (>30)
[2023-11-07 09:51] LABS: Folate 8.9 ng/mL (> or = 4.0); Vitamin B12 423 pg/mL (200-900)
[2023-11-09 09:27] LABS: Rubeola IgG (Measles) >300.00 AU/mL
== END 2023-11-07 07:39 | disposition home or self-care (01) ==
LOC: HO.LAB 07:38
PROVIDERS: PCP Internal Medicine; Visit Provider Internal Medicine
DX: Z02.0 Encounter for examination for admission to educational institution (principal); R19.5 Other fecal abnormalities; E78.00 Pure hypercholesterolemia, unspecified
CPT/HCPCS: 36415; 80053; 80061; 82306; 82607; 82746; 84439; 84443; 85025; 86765

== ENCOUNTER 2024-01-30 09:24 | Outpatient (AMB) | payer MEDICARE, SELFPAY ==
--- NOTE | 2024-01-30 09:29 | MHC.OFFVIS ---
Intake Vital Signs 01/30/24 09:30 Height 5 ft 4 in Weight 121 lb 4.068 oz BMI 20.8 BP 120/82 Blood Pressure Location Lt brachial Position Sitting Pulse 57 Pulse Source Pulse Oximeter Pulse Oximetry (%) 89 L Oxygen Delivery Method Room Air Intake Visit Reasons: COPD Intake Note: pt is her for follow up and states she feels the same, pt nees a refill on Telegy sent in. Allergies No Known Allergies [No Known Allergies*] Allergy (Verified 01/30/24 09:33) Medication List - Last Reconciled 01/30/24 by Bhakti Garcia MD calcium carbonate (Calcium) 600 mg PO DAILY cholecalciferol (vitamin D3) 50 mcg PO DAILY fkkekjsnswx-jckruusrk-ypkoeysu 100-62.5-25 mcg (Trelegy Ellipta) 1 ea PO DAILY ipratropium-albuterol 20-100 mcg/actuation (Combivent Respimat) 1 puff inhalation Q6H PRN Do you need a note to return to daycare/school/sports/work: No HPI COPD HPI Details 73 years old very pleasant female is a case of advanced chronic obstructive pulmonary disease. She has moved from the 2nd floor to the 1st floor and it makes it very easy for her. Breathing is holding very stable and luckily she has had no respiratory infection. She is doing well just with Trelegy 1 inhalation daily, and hardly needs to use the rescue inhaler( Combivent Respimat) She has O2 concentrator at home but uses O2 only if she feels more short of breath or tired. She is somewhat stronger. And more energetic than before Weight is being maintained, though she remains of a thin build. [facility] Medical History Quit smoking within past year Dyspnea on minimal exertion Tobacco abuse History of pneumothorax (~2018) Personal history of nicotine dependence Hypoxemia requiring supplemental oxygen COPD (chronic obstructive pulmonary disease) Surgical History Hx of colonoscopy History of tubal ligation (~1979) History of lumpectomy of left breast (~2012) History of tonsillectomy History of lung surgery (~2018) Family History Mother Breast cancer Father Cancer Social History Housing: Apartment Alcohol intake: never Patient Tobacco Use Status: Former Tobacco user Tobacco use type: Cigarette Cigarette Packs Per Day: 1 Cigarettes Per Day: 20.0 Years Smoked: 55 e-Cigarette/Vaping Use: Never Used Second Hand Smoke Exposure: Yes service: No Current occupational status: retired Cognitive needs: No Hearing needs: No Vision needs: Yes Review of Systems Const All systems reviewed & are unremarkable except as noted in HPI and below Eyes Reports no additional complaints ENT Reports no additional complaints Card Denies chest pain, Denies irregular heart rhythm and Denies leg edema Resp Reports as per HPI GI Reports no additional complaints Reports no additional complaints Musc Reports no additional complaints Skin/Breast Reports system reviewed and no additional complaints, except as documented Neuro Reports no additional complaints Psych Reports no additional complaints Endo Reports no additional complaints Physical Exam Vital Signs: Last Vital Signs Pulse 57 01/30/24 09:30 BP 120/82 01/30/24 09:30 Pulse Ox 89 L 01/30/24 09:30 Oxygen Delivery Method Room Air 01/30/24 09:30 BMI result Body Mass Index 20.8 Const Other: Patient is of a thin build and looks comfortable, active . General: comfortable, no acute distress, alert and awake Orientation/consciousness: patient oriented x3 HEENT Head: Yes normal to inspection General nose exam: No nasal polyps present and No nasal discharge present Face and sinus: Yes sinuses nontender Mouth: oropharynx normal Teeth and gingiva: other (Multiple fillings and if you extractions are noted) Throat: Yes posterior oropharynx normal Eyes General: appearance normal, both eyes and all related structures Neck Neck: Yes normal visual inspection, Yes no lymphadenopathy, Yes trachea midline and Yes no JVD Thyroid: Thyroid normal Chest Chest palpation & inspection: normal inspection of the chest, normal palpation of entire chest wall and no tenderness Resp Other: Percussion note hyper-resonant on both sides. Breath sounds are very distant with prolonged expiratory phase but equal on both sides. No adventitious sounds are heard. Cardio Palpation: normal PMI Rate: regular rate Rhythm: regular rhythm Heart sounds: no gallops and no murmurs Peripheral pulses: Peripheral pulses 2+ throughout GI Palpation (GI): Soft to palpation, nontender, No hepatosplenomegaly present and no masses Auscultation: normal bowel sounds Back/Spine/Pelvis Thoracic/Lumbar Spine: thoracic and lumbar spine normal to inspection Skin General skin exam: no rashes or lesions noted Neuro General: patient oriented x3 and no focal motor deficits Cranial nerves: Yes CN's II-XII intact bilaterally Extrem General: Yes normal to inspection, Yes no clubbing, cyanosis or edema and Yes no calf tenderness Psych Appearance: grossly normal and well kempt Speech and movement: Normal speech and movement present Assessment & Plan Assessment & Plan (1) COPD (chronic obstructive pulmonary disease): Comment: (severe obstructive pulmonary disease - stable and controlled) May 2023 CT scan Severe bullous emphysema. Code(s): J44.9 - Chronic obstructive pulmonary disease, unspecified Plan: Continue to use Trelegy 1 inhalation daily Combivent Respimat 1 inhalation Q 6 hours only p.r.n.. (2) Hypoxemia requiring supplemental oxygen: Comment: She has history of exercise induced hypoxemia. Does have O2 concentrator and also portable cylinders at home. However she has used O2 only once in a while. Code(s): R09.02 - Hypoxemia; Z99.81 - Dependence on supplemental oxygen Plan: Use O2 2 L/minute p.r.n. if O2 sat falls below 90 or if there is an increased shortness of breath (3) Pulmonary nodules: Comment: February 2022 CT scan, Benign class-2 Code(s): R91.8 - Other nonspecific abnormal finding of lung field Plan: Continue regular annual follow-up. Medications: Refilled owcrnyoqibi-bwkxtckce-njmrxjqz 100-62.5-25 mcg (Trelegy Ellipta) 1 ea PO DAILY 60 ea 5RF COPD J44.9 - Chronic obstructive pulmonary disease, unspecified Coding Level of Care Code Est Pt Level 3 (49704) Diagnoses COPD (chronic obstructive pulmonary disease) J44.9 Hypoxemia requiring supplemental oxygen R09.02; Z99.81 Pulmonary nodules R91.8
[2024-01-30 09:30] VITALS: BP 120/82; PULSE 57; O2SAT 89; BMI 20.8
== END 2024-01-30 09:42 | disposition home or self-care (01) ==
PROVIDERS: PCP Internal Medicine; Visit Provider Internal Medicine
DX: J44.9 Chronic obstructive pulmonary disease, unspecified (principal); R09.02 Hypoxemia; Z99.81 Dependence on supplemental oxygen; R91.8 Other nonspecific abnormal finding of lung field
CPT/HCPCS: 99213

== ENCOUNTER → 2024-01-30 09:24 | Outpatient (BNVA) | payer MEDICARE, SELFPAY | PROVIDERS: PCP Internal Medicine; Visit Provider Internal Medicine | DX: J44.9 Chronic obstructive pulmonary disease, unspecified (principal); R91.8 Other nonspecific abnormal finding of lung field; R09.02 Hypoxemia; Z99.81 Dependence on supplemental oxygen | CPT/HCPCS: 99212 ==

== ENCOUNTER 2024-04-11 08:30 | Outpatient (REF) | payer MEDICARE, SELFPAY ==
--- NOTE | ~2024-04-11 | CT_ITS ---
EXAMINATION: CT LOW-DOSE SCREENING CHEST WITHOUT CONTRAST CLINICAL INFORMATION: Personal history of nicotine dependence. The patient is a current smoker with a 50 pack-year history of smoking. COMPARISON: CT chest 05/22/2023. Chest x-ray 04/12/2019. TECHNIQUE: Multidetector volumetric CT imaging of the chest is performed on a Siemens SOMATOM Definition scanner without contrast using low-dose technique. Additional 2D coronal and sagittal reformatted images and axial 3D maximum intensity projection (MIP) images are generated on the CT workstation. This CT examination was performed using dose optimization techniques as appropriate, variously including the following: *Automated exposure control *Adjustment of mA and/or kV according to patient size (this includes techniques or standardized protocols for targeted exams where dose is matched to indication/reason for exam; i.e. extremities or head) *Use of iterative reconstruction technique TOTAL EXAM DLP: 35 mGy-cm. CTDIvol: 0.90 mGy. FINDINGS: PULMONARY NODULES: Previously seen thickened mass-like area in the left upper lobe seen at the time of the prior study (5:163) has essentially completely resolved with some minimal linear platelike atelectasis remaining (5:146). There is a new 4 x 5 x 3 mm left upper lobe nodule (5:219). 8 mm left lower lobe nodule is stable (5:371 compare prior 5:403). Two 4 mm lingular nodules are stable (5:359 and 361 compare prior 5:393 and 397). LUNGS: Lungs bilaterally symmetrically expanded. A suture line is seen adjacent to the mediastinum in the right upper lung. No recurrent mass. Severe emphysematous changes are present with the most marked bullous changes present in both upper lobes. Ground-glass changes are seen in the lower lobes, unchanged from prior. No effusion or pneumothorax. Mucus strands are present in the trachea. Central airways patent. MEDIASTINUM: No mediastinal, hilar or axillary adenopathy or free fluid collection. CORONARY ARTERY CALCIFICATION: Extensive. THYROID GLAND: The thyroid is enlarged with multiple masses and calcifications. Thyroid ultrasound recommended for further evaluation. CARDIOVASCULAR STRUCTURES: Aortic and heart size normal. No pericardial effusion. CHEST WALL/AXILLA: Unremarkable. UPPER ABDOMEN: Included portions of the solid organs in the upper abdomen unremarkable on noncontrast imaging. OSSEOUS STRUCTURES: No suspicious focal findings. CT/CT lung screening IMPRESSION: 1. Previously seen thickened mass-like area in the left upper lobe has essentially completely resolved with some minimal linear platelike atelectasis remaining. 2. There is a new 4 x 5 x 3 mm left upper lobe nodule. 3. Other nodules are stable. 4. Severe emphysema. 5. Enlarged thyroid with multiple masses and calcifications. Thyroid ultrasound recommended for further evaluation. ASSESSMENT: 1. Lung-RADS Category 3: Probably benign findings. N/A 2. Lung-RADS Category S: Negative. There are no clinically significant or potentially clinically significant findings not related to the lungs requiring urgent additional evaluation. RECOMMENDATION: A 6-month follow up low-dose lung CT scan is recommended. An order for CT LUNG CANCER SCREENING SHORT INTERVAL FOLLOWUP ([id number]) can be placed.
== END 2024-04-11 08:31 | disposition home or self-care (01) ==
LOC: HO.CT 08:30
PROVIDERS: Visit Provider Physician Assistant Medical
DX: Z12.2 Encounter for screening for malignant neoplasm of respiratory organs (principal); Z87.891 Personal history of nicotine dependence
CPT/HCPCS: 71271

== ENCOUNTER 2024-05-09 13:42 | Outpatient (AMB) | payer MEDICARE, SELFPAY ==
[2024-05-09 13:43] VITALS: BP 140/70; PULSE 105; TEMP 36.6; O2SAT 90; BMI 20.3
--- NOTE | 2024-05-09 13:43 | MHC.OFFWIV ---
Intake Vital Signs 05/09/24 13:43 05/09/24 14:24 Height 5 ft 4 in Weight 118 lb BMI 20.3 BP 140/70 H Blood Pressure Location Lt brachial Position Sitting Pulse 105 H Pulse Source Pulse Oximeter Temp 97.9 F Temp Source Temporal Artery Scan Pulse Oximetry (%) 90 L 94 Oxygen Delivery Method Room Air Room Air Intake Visit Reasons: EP Productive Cough/SOB Intake Note: pt is here today for cough SOB started 2 weeks ago Patient Tobacco Use Status: Former Tobacco user Allergies No Known Allergies [No Known Allergies*] Allergy (Verified 05/09/24 13:46) Do you need a note to return to daycare/school/sports/work: No HPI HPI Comments History of Present Illness Details Patient is a 74-year-old female with a past medical history of emphysema on 3L home O2 (not wearing it at her visit) Trelogy daily and Combivent as needed who was complaining of increasing green and yellow sputum production over the last few weeks. She states she has had an upper respiratory type infection the last 2 weeks but that her sputum is now changing color, getting thicker and she is feeling more short of breath. She states she typically uses oxygen at home but does not take it out with her when she leaves her house because it is too heavy to lug around. She denies any fever or chest pain or head congestion. She states she has not used her Combivent inhaler despite needing it. She does not hear herself wheezing and she has not tried any other medications to make herself feel better. [facility] Medical History (Updated 05/09/24 @ 14:28 by Susan Carrizales PA-C) Personal history of nicotine dependence Quit smoking within past year Dyspnea on minimal exertion Tobacco abuse History of pneumothorax (~2018) Hypoxemia requiring supplemental oxygen COPD (chronic obstructive pulmonary disease) Surgical History Hx of colonoscopy History of tubal ligation (~1979) History of lumpectomy of left breast (~2012) History of tonsillectomy History of lung surgery (~2018) Family History Mother Breast cancer Father Cancer Social History Housing: Apartment Alcohol intake: never Patient Tobacco Use Status: Former Tobacco user Tobacco use type: Cigarette Cigarette Packs Per Day: 1 Cigarettes Per Day: 20.0 Years Smoked: 55 e-Cigarette/Vaping Use: Never Used Second Hand Smoke Exposure: Yes service: No Current occupational status: retired Cognitive needs: No Hearing needs: No Vision needs: Yes Review of Systems Const All systems reviewed & are unremarkable except as noted in HPI and below Physical Exam Vital Signs: Last Vital Signs Temp 97.9 F 05/09/24 13:43 Pulse 105 H 05/09/24 13:43 BP 140/70 H 05/09/24 13:43 Pulse Ox 94 05/09/24 14:24 Oxygen Delivery Method Room Air 05/09/24 14:24 BMI result Body Mass Index 20.3 Const General: cooperative, healthy appearing, comfortable and no acute distress Orientation/consciousness: patient oriented x3 Limitations: no limitations HEENT Head: Yes normal to inspection Ears: external ears normal General nose exam: Normal external nose present, Normal nares present and No nasal discharge present Face and sinus: Yes normal facial exam Eyes General: appearance normal, both eyes and all related structures Neck Neck: Yes normal visual inspection Resp Effort & Inspection: normal respiratory effort, able to speak in complete sentences, no respiratory distress, not tachypneic, no tripod positioning and no use of accessory muscles Auscultation: clear to auscultation bilaterally (dim throughout) Cardio Rate: regular rate Rhythm: regular rhythm Heart sounds: normal S1 and S2 Skin General skin exam: no rashes or lesions noted Neuro General: patient oriented x3 Extrem General: Yes normal to inspection and Yes no clubbing, cyanosis or edema Assessment & Plan Assessment & Plan (1) Productive cough: Code(s): R05.8 - Other specified cough Plan: Lungs are clear but dim, no indication for steroids. However we will get a chest x-ray to rule out pneumonia with the increased thickened green mucus. CXR showed infiltrates, sent Augmentin and azithromycin to patient's pharmacy. Encouraged patient to use Combivent inhaler when she needs to as well as using her home oxygen. Gave red flag warning signs on when to go to the emergency department. Plan See above Orders: Orders XR chest 2V Today R05.9 - Cough, unspecified Coding Level of Care Code Est Pt Level 4 (81640) Diagnoses Productive cough R05.8
[2024-05-09 14:24] VITALS: O2SAT 94
== END 2024-05-09 14:57 | disposition home or self-care (01) ==
PROVIDERS: PCP Internal Medicine; Visit Provider Physician Assistant
DX: R05.8 Other specified cough (principal)
CPT/HCPCS: 99214

== ENCOUNTER 2024-05-09 14:24 | Outpatient (REF) | payer MEDICARE, SELFPAY ==
--- NOTE | ~2024-05-09 | XR_ITS ---
EXAMINATION: XR CHEST CLINICAL INFORMATION: Cough COMPARISON: Previous chest x-ray most recent from [address] most recent March 2024 TECHNIQUE: 2 views of the chest were obtained. FINDINGS: There is severe bullous emphysema with a large lucencies in both upper and midlung loya. There is crowding of lung markings at the lung bases. There is question bronchial wall thickening and possible small infiltrates. No pleural effusion or pneumothorax. The cardiac and mediastinal contours are stable. Bony structures are unremarkable. XR/XR chest 2V IMPRESSION: Severe bullous emphysema. Question bibasilar bronchial wall thickening/small infiltrates.
== END 2024-05-09 14:25 | disposition home or self-care (01) ==
LOC: HO.HMGCX 14:24
PROVIDERS: PCP Internal Medicine; Visit Provider Physician Assistant
DX: R05.9 Cough, unspecified (principal)
CPT/HCPCS: 71046

== ENCOUNTER 2024-08-06 09:20 | Outpatient (AMB) | payer MEDICARE, SELFPAY ==
--- NOTE | 2024-08-06 09:22 | A.OFFVIS_ITS ---
Vital Signs 08/06/24 09:24 Height 5 ft 4 in BP 120/72 Blood Pressure Location Lt brachial Position Sitting Pulse 77 Pulse Source Pulse Oximeter Pulse Oximetry (%) 95 Oxygen Delivery Method Room Air Intake Visit Reasons: COPD Allergies No Known Allergies [No Known Allergies*] Allergy (Verified 08/06/24 09:27) Medication List - Last Reconciled 08/06/24 by Lisbeth Turcios LPN calcium carbonate (Calcium 600) 600 mg PO DAILY cholecalciferol (vitamin D3) 50 mcg PO DAILY rhjifcpqyum-lksgvqwvf-hicwgwpm 100-62.5-25 mcg (Trelegy Ellipta) 1 ea PO DAILY ipratropium-albuterol 20-100 mcg/actuation (Combivent Respimat) 1 puff inhalation Q6H PRN Do you need a note to return to daycare/school/sports/work: No HPI HPI COPD: Details: THIS 74 YEARS OLD VERY PLEASANT FEMALE IS HERE FOR HER 6 MONTHS FOLLOW-UP FOR COPD. SHE IS DOING VERY WELL ON HER CURRENT MEDICAL REGIMEN AND HAS HAD NO ACUTE EXACERBATION IN THE LAST 6 MONTHS. USES O2 2 L/MINUTE AT NIGHT AND SLEEPS COMFORTABLY. ON SOME NIGHTS HE SLEEPS EVEN WITHOUT THE OXYGEN. SHE HAS HER USUAL SHORTNESS OF BREATH ON CLIMBING STAIRS OR WALKING FAST. HARDLY HAS ANY COUGH OR WHEEZING. [facility] Medical History Personal history of nicotine dependence Quit smoking within past year Dyspnea on minimal exertion Tobacco abuse History of pneumothorax (~2018) Hypoxemia requiring supplemental oxygen COPD (chronic obstructive pulmonary disease) Surgical History Hx of colonoscopy History of tubal ligation (~1979) History of lumpectomy of left breast (~2012) History of tonsillectomy History of lung surgery (~2018) Family History Mother Breast cancer Father Cancer Social History Housing: Apartment Alcohol intake: never Patient Tobacco Use Status: Former Tobacco user Tobacco use type: Cigarette Cigarette Packs Per Day: 1 Cigarettes Per Day: 20.0 Years Smoked: 55 e-Cigarette/Vaping Use: Never Used Second Hand Smoke Exposure: Yes service: No Current occupational status: retired Cognitive needs: No Hearing needs: No Vision needs: Yes Review of Systems Const All systems reviewed & are unremarkable except as noted in HPI and below Eyes Reports no additional complaints ENT Reports no additional complaints Card Denies chest pain, Denies irregular heart rhythm and Denies leg edema Resp Reports as per HPI GI Reports no additional complaints Reports no additional complaints Musc Reports no additional complaints Skin/Breast Reports system reviewed and no additional complaints, except as documented Neuro Reports no additional complaints Psych Reports no additional complaints Endo Reports no additional complaints Physical Exam Const Other: Patient is of a thin build and looks comfortable, active . General: comfortable, no acute distress, alert and awake Orientation/consciousness: patient oriented x3 HEENT Head: Yes normal to inspection General nose exam: No nasal polyps present and No nasal discharge present Face and sinus: Yes sinuses nontender Mouth: oropharynx normal Teeth and gingiva: other (Multiple fillings and if you extractions are noted) Throat: Yes posterior oropharynx normal Eyes General: appearance normal, both eyes and all related structures Neck Neck: Yes normal visual inspection, Yes no lymphadenopathy, Yes trachea midline and Yes no JVD Thyroid: Thyroid normal Chest Chest palpation & inspection: normal inspection of the chest, normal palpation of entire chest wall and no tenderness Resp Other: Percussion note hyper-resonant on both sides. Breath sounds are very distant with prolonged expiratory phase but equal on both sides. No adventitious sounds are heard. Cardio Palpation: normal PMI Rate: regular rate Rhythm: regular rhythm Heart sounds: no gallops and no murmurs Peripheral pulses: Peripheral pulses 2+ throughout GI Palpation (GI): Soft to palpation, nontender, No hepatosplenomegaly present and no masses Auscultation: normal bowel sounds Back/Spine/Pelvis Thoracic/Lumbar Spine: thoracic and lumbar spine normal to inspection Skin General skin exam: no rashes or lesions noted Neuro General: patient oriented x3 and no focal motor deficits Cranial nerves: Yes CN's II-XII intact bilaterally Extrem General: Yes normal to inspection, Yes no clubbing, cyanosis or edema and Yes no calf tenderness Psych Appearance: grossly normal and well kempt Speech and movement: Normal speech and movement present Assessment & Plan Assessment & Plan (1) Personal history of nicotine dependence: Comment: (former smoker, onset 19yo, x 46yrs, max1-2ppd quit for 6yr, now 1/2ppd - 40pyh) QUIT COMPLETELY SINCE LAST YEAR Code(s): Z87.891 - Personal history of nicotine dependence Category: Medical Plan: COMMENDED FOR QUITTING SMOKING COMPLETELY. CONTINUE TO PARTICIPATE IN ANNUAL LUNG SCREENING PROGRAM (2) COPD (chronic obstructive pulmonary disease): Comment: (severe obstructive pulmonary disease - stable and controlled) May 2023 CT scan Severe bullous emphysema. Code(s): J44.9 - Chronic obstructive pulmonary disease, unspecified Category: Medical Plan: CONTINUE TRELEGY ELLIPTA 1 INHALATION DAILY COMBIVENT RESPIMAT 1 INHALATION Q 6 HOURS P.R.N. FOR ACUTE DISTRESS (3) Hypoxemia requiring supplemental oxygen: Comment: She has history of exercise induced hypoxemia. Does have O2 concentrator and also portable cylinders at home. However she has used O2 only at night and p.r.n. during the daytime. Code(s): R09.02 - Hypoxemia; Z99.81 - Dependence on supplemental oxygen Category: Medical Plan: O2 2 L/minute at night while sleeping. O2 2 L/minute for short time p.r.n. during the days Coding Level of Care Code Est Pt Level 3 (88611) Diagnoses Personal history of nicotine dependence Z87.891 COPD (chronic obstructive pulmonary disease) J44.9 Hypoxemia requiring supplemental oxygen R09.02; Z99.81
[2024-08-06 09:24] VITALS: BP 120/72; PULSE 77; O2SAT 95
== END 2024-08-06 09:34 | disposition home or self-care (01) ==
PROVIDERS: PCP Internal Medicine; Visit Provider Internal Medicine
DX: Z87.891 Personal history of nicotine dependence (principal); J44.9 Chronic obstructive pulmonary disease, unspecified; R09.02 Hypoxemia; Z99.81 Dependence on supplemental oxygen
CPT/HCPCS: 99213

== ENCOUNTER → 2024-08-06 09:20 | Outpatient (BNVA) | payer MEDICARE, SELFPAY | PROVIDERS: PCP Internal Medicine; Visit Provider Internal Medicine | DX: J44.9 Chronic obstructive pulmonary disease, unspecified (principal); R09.02 Hypoxemia; Z99.81 Dependence on supplemental oxygen; Z87.891 Personal history of nicotine dependence | CPT/HCPCS: 99212 ==

== ENCOUNTER 2024-09-26 07:42 | Outpatient (REF) | payer MEDICARE, SELFPAY ==
--- NOTE | 2024-09-26 07:48 | PFT_ITS ---
Flows: FEV1: 53 % of predicted at 1.16 L FVC: 71 % of predicted at 2.05 L FEV1/FVC: 57 % Bronchodilator response: Present Volumes: Total lung capacity: 75 % of predicted at 3.87 L Residual volume: 81 % of predicted at 1.68 L Slow vital capacity: 73 % of predicted at 2.19 L Expiratory reserve volume: 76 % of predicted at 0.56 L Diffusion capacity: Severely decreased, adjusts to being moderately decreased after correction for alveolar ventilation. Impression: Moderate obstructive ventilatory defect with positive bronchodilator response. Decreased diffusion capacity suggests emphysema. MTDD
[2024-09-26 15:37] VITALS: PULSE 71; RESP 16; O2SAT 94
== END 2024-09-26 07:43 | disposition home or self-care (01) ==
LOC: HO.RESP 07:42
PROVIDERS: PCP Internal Medicine; Visit Provider Physician Assistant Medical
DX: R91.8 Other nonspecific abnormal finding of lung field (principal); Z87.891 Personal history of nicotine dependence
CPT/HCPCS: 94010; 94640; 94727; 94729

== ENCOUNTER → 2024-09-26 07:48 | Outpatient (BNV) | payer MEDICARE, SELFPAY | PROVIDERS: PCP Internal Medicine; Visit Provider Internal Medicine Pulmonary Disease | DX: J44.9 Chronic obstructive pulmonary disease, unspecified (principal); Z87.891 Personal history of nicotine dependence; R91.8 Other nonspecific abnormal finding of lung field | CPT/HCPCS: 94060; 94727; 94729 ==

== ENCOUNTER 2024-10-14 08:14 | Outpatient (REF) | payer MEDICARE, SELFPAY ==
--- NOTE | ~2024-10-14 | CT_ITS ---
EXAMINATION: CT LOW-DOSE SCREENING CHEST WITHOUT CONTRAST CLINICAL INFORMATION: Personal history of nicotine dependence. Former smoker. The patient has a 50 pack-year history of smoking, having quit [address] chest 04/11/2024: There is a new 4 x 5 x 3 mm left upper lobe nodule (5:219). 8 mm left lower lobe nodule is stable (5:371 compare prior 5:403). Two 4 mm lingular nodules are stable (5:359 and 361 compare prior 5:393 and 397). COMPARISON: CT chest 04/11/2024 and 05/22/2023. X-ray chest 05/17/2024. TECHNIQUE: Multidetector volumetric CT imaging of the chest is performed on a Siemens SOMATOM Definition scanner without contrast using low dose technique. Additional 2D coronal and sagittal reformatted images and axial 3D maximum intensity projection (MIP) images are generated on the CT workstation. This CT examination was performed using dose optimization techniques as appropriate, variously including the following: *Automated exposure control *Adjustment of mA and/or kV according to patient size (this includes techniques or standardized protocols for targeted exams where dose is matched to indication/reason for exam; i.e. extremities or head) *Use of iterative reconstruction technique TOTAL EXAM DLP: 37 mGy-cm. CTDIvol: 0.96 mGy. FINDINGS: PULMONARY NODULES: The previously seen new 4 x 5 x 3 mm left upper lobe nodule (prior 5:219) appears decreased in size measuring 2.8 x 2.7 x 2 mm (5:204). Previously seen 8 mm left lower lobe nodule is unchanged (5:376 compare prior 5:371). The 2 previously seen lingular nodules measuring about 4 mm in size each are unchanged (5:370 and 372 compare prior 5:360). A left lower lobe 4 mm nodule is unchanged (5:381 compare prior 5:382). There is no new, increasing sized or concerning pulmonary nodule. LUNGS: Again seen are severe emphysematous changes, most marked in the upper lobes. Suture line present in the mediastinum adjacent to the right upper lobe medially. There is a new/recurrent linear area of scarring/atelectasis seen in the left upper lobe (5:170). A similar area had been seen on the 05/22/2023 study which had cleared at the time of the 04/11/2024 study. MEDIASTINUM: No mediastinal, hilar or axillary adenopathy or free fluid collection. CORONARY ARTERY CALCIFICATION: Marked. THYROID GLAND: The thyroid is enlarged with multiple calcifications and masses. Dedicated thyroid ultrasound is recommended as was recommended previously. CARDIOVASCULAR STRUCTURES: Aortic and heart size normal. No pericardial effusion. CHEST WALL/AXILLA: Unremarkable. UPPER ABDOMEN: Included portions of the solid organs in the upper abdomen unremarkable on noncontrast imaging. OSSEOUS STRUCTURES: No suspicious focal findings. CT/CT lung screen follow up IMPRESSION: 1. Multiple pulmonary nodules are unchanged. No new or increasing sized nodule is seen. 2. New area of linear scarring/atelectasis in the left upper lobe. 3. Severe emphysema. 4. Enlarged thyroid with multiple masses and calcifications. Dedicated thyroid ultrasound is again recommended as was recommended previously. ASSESSMENT: 1. Lung-RADS Category 2: Benign appearance or behavior of nodules. N/A 2. Lung-RADS Category S: Positive. There are clinically significant or potentially clinically significant findings not related to the lungs requiring further workup. RECOMMENDATION: Continued routine annual low-dose CT lung screening in 1 year is recommended. An order for CT CHEST LOW DOSE CANCER SCREENING ([id number]) can be placed. Dedicated thyroid ultrasound recommended. Electronically signed by: Robert Beatty MD 10/22/2024 12:44 PM [facility]
== END 2024-10-14 08:15 | disposition home or self-care (01) ==
LOC: HO.CT 08:14
PROVIDERS: PCP Internal Medicine; Visit Provider Physician Assistant Medical
DX: R91.8 Other nonspecific abnormal finding of lung field (principal); Z87.891 Personal history of nicotine dependence
CPT/HCPCS: 71250

== ENCOUNTER 2024-11-27 10:45 | Outpatient (AMB) | payer MEDICARE, SELFPAY ==
[2024-11-27 10:57] VITALS: BP 140/76; PULSE 87; O2SAT 91; BMI 21.3
--- NOTE | 2024-11-27 10:57 | A.OFFVIS_ITS ---
Intake Vital Signs 11/27/24 10:57 Height 5 ft 4 in Weight 124 lb BMI 21.3 BP 140/76 H Blood Pressure Location Lt brachial Position Sitting Pulse 87 Pulse Source Pulse Oximeter Pulse Oximetry (%) 91 L Oxygen Delivery Method Room Air Intake Visit Reasons: [facility] G0439 Allergies No Known Allergies [No Known Allergies*] Allergy (Verified 11/27/24 10:57) Medication List - Last Reconciled 11/27/24 by Chelsy Gallagher MD calcium carbonate (Calcium 600) 600 mg PO DAILY cholecalciferol (vitamin D3) 50 mcg PO DAILY vjycjhgqxas-duqkwtsuo-cnhrdqrr 100-62.5-25 mcg (Trelegy Ellipta) 1 ea PO DAILY ipratropium-albuterol 20-100 mcg/actuation (Combivent Respimat) 1 puff inhalation Q6H PRN HPI [facility] G0439 HPI Details 74-year-old female with a history of [employer] with a history of pulmonary nodules tubular adenoma coming in for annual well visit patient was last seen in 11/08/2023. Patient's mammogram is due, bone density is due. Patient had a CT scan of the chest in 11/08/2024 results showing benign appearance of nodules continue to do CT yearly. Incidentally noted enlarged thyroid gland. Patient also had pulmonary function test done in 10/09/2024 showing moderate obstructive ventilatory defect with positive bronchodilator response. Decreased diffusion capacity suggests emphysema. Patient has seen Pulmonary August 06. As for the smoking patient has completely stopped last year 2022. Patient has been placed on Trelegy and Combivent patient has been given oxygen also for hypo xemia. Patient also had a chest x-ray in 05/09/2024 showing severe bullous emphysema Patient sees pulmonary Dr. Garcia, patient sees [facility] for Ophthalmology patient sees Gastroenterology Dr. Small patient also sees [facility] [place] for gynecological evaluation [facility] Medical History Personal history of nicotine dependence Quit smoking within past year Dyspnea on minimal exertion Tobacco abuse History of pneumothorax (~2019) Hypoxemia requiring supplemental oxygen COPD (chronic obstructive pulmonary disease) Surgical History Hx of colonoscopy History of tubal ligation (~1979) History of lumpectomy of left breast (~2012) History of tonsillectomy History of lung surgery (~2018) Family History Mother Breast cancer Father Cancer Social History Housing: Apartment Alcohol intake: never Patient Tobacco Use Status: Former Tobacco user Tobacco use type: Cigarette Cigarette Packs Per Day: 1 Cigarettes Per Day: 20.0 Years Smoked: 55 e-Cigarette/Vaping Use: Never Used Second Hand Smoke Exposure: Yes service: No Current occupational status: retired Cognitive needs: No Hearing needs: No Vision needs: Yes Questionnaire Medicare Wellness Checkup [age] What gender do you identify with?: female During the past 4 weeks, how much have you been bothered by emotional problems such as feeling anxious, depressed, irritable, sad or downhearted, and blue?: not at all During the past 4 weeks, has your physical & emotional health limited your social activities with family, friends, neighbors, or groups?: not at all During the past 4 weeks, how much bodily pain have you generally had?: very mild pain During the past 4 weeks, was someone available to help you if you needed & wanted help?: no, not at all During the past 4 weeks, what was the hardest physical activity you could do for at least 2 minutes?: heavy Can you get to places out of walking distance without help? (For eg., can you travel alone on buses, taxis or drive your car?): Yes Can you go shopping for groceries or clothes without someone's help?: Yes Can you prepare your own meals?: Yes Can you do your housework without help?: Yes Because of any health problems, do you need the help of another person with your personal care needs such as eating, bathing, dressing or getting around the house?: No Can you handle your own money without help?: Yes During the past 4 weeks, how would you rate your health in general?: very good During the past 4 weeks how have things been going for you?: pretty well Are you having difficulties driving your car?: no Do you always fasten your seat belt when you are in a car?: yes, usually During past 4 weeks, have you been bothered by the following: never: Falling or dizzy when standing up, Sexual problems?, Trouble eating well?, Teeth or denture problems? and Problems using the telephone? and sometimes: Tiredness or fatigue? Have you fallen 2 or more times in the past year?: No Are you afraid of falling?: No Are you a smoker?: no During the past 4 weeks, how many drinks of wine, beer, or other alcoholic beverages did you have?: no alcohol at all Do you exercise for about 20 minutes 3 or more times a week?: no, I usually do not exercise this much Have you been given information to help with the following?: no: Hazards in your house that might hurt you? and no: Keeping track of your medications? How often do you have trouble taking medicines the way you have been told to take them?: I always take medicine as prescribed How confident are you that you can control & manage most of your health problems?: very confident What is your race?: White PHQ-9 Over the last 2 weeks, how often have you been bothered by any of the following problems? 1. Little interest or pleasure in doing things: not at all 2. Feeling down, depressed, or hopeless: not at all 3. Trouble falling or staying asleep, or sleeping too much: nearly every day 4. Feeling tired or having little energy: not at all 5. Poor appetite or overeating: not at all 6. Feeling bad about yourself - or that you are a failure or have let yourself or your family down: not at all 7. Trouble concentrating on things, such as reading the newspaper or watching television: not at all 8. Moving or speaking so slowly that other people could have noticed. Or the opposite - being so fidgety or restless that you have been moving around a lot more than usual: not at all 9. Thoughts that you would be better off or of hurting yourself in some way: not at all Total score: 3 Depression Screening Interpretation: Positive Depression Screening Done: Yes 52908 - PHQ-9 Billing: Yes Source: Developed by Drs. Brody Fitch, Anay Portillo, Curtis Middleton and colleagues, with an educational lane from [employer]. GEOFF-7 AMB Questionnaire GEOFF-7 Date GEOFF - 7 assessed: 11/27/24 Feeling nervous, anxious, or on edge: 0 = Not at all Not being able to stop or control worryin = Not at all Worrying too much about different things: 0 = Not at all Trouble relaxin = Not at all Being so restless that it is hard to sit still: 0 = Not at all Becoming easily annoyed or irritable: 0 = Not at all Feeling afraid as if something awful might happen: 0 = Not at all Total GEOFF-7 score (0-4 normal; 5-9 mild; 10-14 moderate; 15-21 severe): 0 Source: Developed by Drs. Brody Fitch, Anay Portillo, Curtis Middleton and colleagues, with an educational lane from [employer]. Thrive Questionnaire Date Thrive assessed: 11/27/24 I am a: Patient What is your living situation today?: I have a steady place to live Within the past 12 months, did the food you bought not last and you didn't have the money to get more?: Never true Within the past 12 months, did you worry whether your food would run out before you got money to buy more?: Never true Do you have trouble paying for medicines?: No Do you have trouble getting transportation to medical appointments?: No Do you have trouble paying your heating and electricity bill?: No Do you have trouble taking care of your child, family member or friend?: No Do you have trouble with day-to-day activities such as bathing, preparing meals, shopping, managing finances, etc.?: No Are you currently unemployed and looking for a job?: No Are you interested in more education?: No Currently or been in a relationship where the following occur: No concerns reported THRIVE Score: 0 Review of Systems Const Denies poor appetite and Denies weakness Eyes Denies no additional complaints ENT Reports Normal hearing present, Denies dizziness, Denies nasal congestion, Denies tinnitus and Denies sore throat Card Denies chest pain, Denies syncope, Denies rapid heart rate and Denies dyspnea Resp Denies cough and Denies dyspnea GI Denies change in stool character, Reports constipation, Denies diarrhea, Denies nausea and Denies vomiting Denies urinary frequency, Denies difficulty voiding and Denies dysuria Neuro Reports Normal hearing present, Denies confusion, Denies dizziness, Denies syncope and Denies weakness Psych Denies confusion Physical Exam Vital Signs: Last Vital Signs Pulse 87 11/27/24 10:57 BP 140/76 H 11/27/24 10:57 Pulse Ox 91 L 11/27/24 10:57 Oxygen Delivery Method Room Air 11/27/24 10:57 BMI result Body Mass Index 21.3 Const General: No confusion Orientation/consciousness: No confusion HEENT Head: Yes normocephalic Ears: external ears normal and TM's normal bilaterally Face and sinus: Yes normal facial exam Mouth: moist mucous membranes Throat: Yes tonsils normal Eyes Conjunctivae: conjunctivae normal Pupils: Equal, round and reactive pupils present and Pupil accommodation reflex normal Direct Ophthalmoscopy: normal light reflex Neck Neck: No lymphadenopathy Thyroid: Thyroid normal Chest Chest palpation & inspection: normal inspection of the chest Resp Effort & Inspection: normal respiratory effort and no audible wheezes Auscultation: clear to auscultation bilaterally, no crackles, no wheezes and lung sounds not diminished Cardio Rate: regular rate Rhythm: regular rhythm Peripheral pulses: radial pulses present and dorsalis pedis present GI Other: guaaic negative Palpation (GI): no masses Auscultation: normal bowel sounds and normoactive bowel sounds Rectal Exam - Female: deferred Skin General skin exam: no rashes or lesions noted Rashes: no rashes Neuro General: No confusion Cranial nerves: Yes Equal, round and reactive pupils present and Yes Normal hearing present Cognition (Neuro): normal cognition Gait exam (Neuro): Normal gait present Motor exam (neuro): 5/5 motor strength present throughout Deep tendon reflexes (DTR's): Right brachioradialis reflex intensity grade: 2+, Left brachioradialis reflex intensity grade: 2+, Right patellar reflex intensity grade: 2+ and Left patellar reflex intensity grade: 2+ Extrem General: No edema Assessment & Plan Assessment & Plan (1) Medicare annual wellness visit, subsequent: Code(s): Z00.00 - Encounter for general adult medical examination without abnormal findings Plan: Patient is advised to eat healthy, keep well hydrated, keep active and have adequate sleep. (2) COPD (chronic obstructive pulmonary disease): Comment: (severe obstructive pulmonary disease - stable and controlled) May 2023 CT scan Severe bullous emphysema. Code(s): J44.9 - Chronic obstructive pulmonary disease, unspecified Plan: Patient follows up with Pulmonary and has been placed on Trelegy and Combivent inhaler (3) Hypoxemia requiring supplemental oxygen: Comment: She has history of exercise induced hypoxemia. Does have O2 concentrator and also portable cylinders at home. However she has used O2 only at night and p.r.n. during the daytime. Code(s): R09.02 - Hypoxemia; Z99.81 - Dependence on supplemental oxygen Plan: Continuing with oxygen as needed (4) Pulmonary nodules: Comment: 10/09/2024 Code(s): R91.8 - Other nonspecific abnormal finding of lung field Plan: Patient on the lung cancer screening program yearly now. (5) Personal history of nicotine dependence: Comment: (former smoker, onset 19yo, x 46yrs, max1-2ppd quit for 6yr, now 1/2ppd - 40pyh) QUIT COMPLETELY SINCE LAST YEAR Code(s): Z87.891 - Personal history of nicotine dependence Plan: Patient on the lung cancer screening 10/09/2024 (6) Osteopenia: Comment: June 2022 Code(s): M85.80 - Other specified disorders of bone density and structure, unspecified site Plan: Bone density requested (7) Tubular adenoma: Comment: 05/2023 Code(s): D36.9 - Benign neoplasm, unspecified site Plan: Colonoscopy done in 06/08/2023. Tubular adenoma 5 years (8) Blood pressure elevated without history of HTN: Code(s): R03.0 - Elevated blood-pressure reading, without diagnosis of hypertension Plan: Low-salt diet monitor the blood pressure (9) Thyroid enlarged: Code(s): E04.9 - Nontoxic goiter, unspecified Plan: Discussed about the results having an enlarged thyroid advised to do an ultrasound of the thyroid Orders: Orders Thyroid Stimulating Hormone Today J44.9 - Chronic obstructive pulmonary disease, unspecified Vitamin D 25-OH Total Today J44.9 - Chronic obstructive pulmonary disease, unspecified XR DEXA axial skeleton Today M81.0 - Age-related osteoporosis without current pathological fracture, M85.80 - Other specified disorders of bone density and structure, unspecified site Complete Blood Count Auto Diff Today J44.9 - Chronic obstructive pulmonary disease, unspecified Comprehensive Met. Panel Today J44.9 - Chronic obstructive pulmonary disease, unspecified Lipid Panel Today E78.00 - Pure hypercholesterolemia, unspecified, J44.9 - Chronic obstructive pulmonary disease, unspecified Vitamin B12 and Folate Today J44.9 - Chronic obstructive pulmonary disease, unspecified Free T4 (Free Thyroxine) Today J44.9 - Chronic obstructive pulmonary disease, unspecified UA CC w/rflx Micro + Cult Today J44.9 - Chronic obstructive pulmonary disease, unspecified, R30.0 - Dysuria US thyroid Today E04.9 - Nontoxic goiter, unspecified Quality Reporting (2019) Depression/Bipolar (159/160/161/177) PHQ-9: Total score: 3 Coding Level of Care Code Medicare Subsequent (G0439) Diagnoses Medicare annual wellness visit, subsequent Z00.00 COPD (chronic obstructive pulmonary disease) J44.9 Hypoxemia requiring supplemental oxygen R09.02; Z99.81 Pulmonary nodules R91.8 Personal history of nicotine dependence Z87.891 Osteopenia M85.80 Tubular adenoma D36.9 Blood pressure elevated without history of HTN R03.0 Thyroid enlarged E04.9 Additional Codes PHQ-9 - 91837 - PHQ-9 Billing: Yes ([id number])
== END 2024-11-27 11:56 | disposition home or self-care (01) ==
PROVIDERS: PCP Internal Medicine; Visit Provider Internal Medicine
DX: Z00.00 Encounter for general adult medical examination without abnormal findings (principal); J44.9 Chronic obstructive pulmonary disease, unspecified; R09.02 Hypoxemia; Z99.81 Dependence on supplemental oxygen; R91.8 Other nonspecific abnormal finding of lung field; Z87.891 Personal history of nicotine dependence; M85.80 Other specified disorders of bone density and structure, unspecified site; D36.9 Benign neoplasm, unspecified site; R03.0 Elevated blood-pressure reading, without diagnosis of hypertension; E04.9 Nontoxic goiter, unspecified

== ENCOUNTER → 2024-11-27 10:45 | Outpatient (BNVA) | payer MEDICARE, SELFPAY | PROVIDERS: PCP Internal Medicine; Visit Provider Internal Medicine | DX: Z00.00 Encounter for general adult medical examination without abnormal findings (principal); R91.8 Other nonspecific abnormal finding of lung field; J44.9 Chronic obstructive pulmonary disease, unspecified; R09.02 Hypoxemia; M85.80 Other specified disorders of bone density and structure, unspecified site; D36.9 Benign neoplasm, unspecified site; R03.0 Elevated blood-pressure reading, without diagnosis of hypertension; E04.9 Nontoxic goiter, unspecified; M81.0 Age-related osteoporosis without current pathological fracture; Z99.81 Dependence on supplemental oxygen; Z87.891 Personal history of nicotine dependence | CPT/HCPCS: 96127 ==

== ENCOUNTER 2024-12-03 08:12 | Outpatient (REF) | payer MEDICARE, SELFPAY ==
[2024-12-03 08:27] LABS: MANUAL DIFF FLAG NO
[2024-12-03 09:00] LABS: Basophils Percent Auto 0.8 % (0-2); Eosinophils Absolute Auto 0.1 X10*3/uL (0.0-0.4); Eosinophils Percent Auto 2.7 % (0-4); Hematocrit 43.8 % (37.0-47.0); Hemoglobin 15.2 g/dl (12.0-16.0); Imm Gran Abs Auto 0.01 X10*3/uL (0.00-0.03); Imm Gran Pct Auto 0.2 % (0.0-0.4); Lymphocytes Absolute Auto 1.2 X10*3/uL (1.2-4.9); Lymphocytes Percent Auto 24.1 % (20-40); Mean Corpuscular HGB Conc 34.7 g/dl (31.0-35.0); Mean Corpuscular Volume 89.4 fL (80.0-98.0); Mean Platelet Volume 9.5 fL (9.4-12.3); Monocytes Absolute Auto 0.5 X10*3/uL (0.1-1.2); Monocytes Percent Auto 11.2 % (2-11); Neutrophils Absolute Auto 2.9 x10*3/uL (2.0-8.3); Platelet Count 290 X10*3/uL (160-400); Red Cell Distribution Width 12.5 % (11.0-16.0); White Blood Count 4.8 X10*3/uL (4.8-10.8)
[2024-12-03 09:33] LABS: Alanine Aminotransferase 14 U/L (0-31); Albumin Level 4.1 g/dL (3.5-5.0); Alkaline Phosphatase 58 U/L (39-117); Anion Gap 10 (12-20); Aspartate Amino Transferase 22 U/L (5-31); Bilirubin Total 0.7 mg/dL (0.0-1.0); Blood Urea Nitrogen 17 mg/dL (9-16); Calcium 9.1 mg/dL (8.4-10.2); Carbon Dioxide 26 mmol/L (22-29); Chloride 110 mmol/L (96-108); Cholesterol 221 mg/dL (<200); Estimated Glomerular Filt Rate > 60; Glucose Random 86 mg/dL (60-115); HDL Cholesterol 40 mg/dL (>40); LDL Cholesterol Calculated 165 mg/dL (<100); Potassium 4.6 mmol/L (3.3-5.1); Sodium 141 mmol/L (135-145); Total Protein 6.9 g/dL (6.5-8.0); Triglycerides 80 mg/dL (<150)
[2024-12-03 09:51] LABS: Free T4 (Free Thyroxine) 1.32 ng/dL (0.71-1.85); Thyroid Stimulating Hormone 1.31 uIU/mL (0.32-4.0); Vitamin D 25-OH Total 31.5 ng/mL (>30)
[2024-12-03 10:00] LABS: Vitamin B12 489 pg/mL (200-900)
[2024-12-03 13:55] LABS: Appearance Urine Clear; Color Urine Yellow; Glucose Urine UA Negative (Negative); Leukocyte Esterase Urine Moderate (2+) (Negative); Nitrite Urine Negative (Negative); Specific Gravity - Urine 1.025 (1.005-1.025); UMIC TRIGGER UACC YES; Urine Blood Negative (Negative); Urine Ketones Negative (Negative); Urine Protein Negative (Neg-Trace)
[2024-12-03 14:00] LABS: Bacteria Urine 4+ (None Seen); RBC Urine 0-2 /HPF (0-2); UACC Culture Trigger YES; WBC Urine >50 /HPF (0-5)
== END 2024-12-03 08:13 | disposition home or self-care (01) ==
LOC: HO.LAB 08:12
PROVIDERS: PCP Internal Medicine; Visit Provider Internal Medicine
DX: J44.9 Chronic obstructive pulmonary disease, unspecified (principal); E78.00 Pure hypercholesterolemia, unspecified; R30.0 Dysuria
CPT/HCPCS: 36415; 80053; 80061; 81001; 82306; 82607; 82746; 84439; 84443; 85025; 87086

== ENCOUNTER 2025-01-01 10:42 | Outpatient (REF) | payer MEDICARE, SELFPAY ==
--- NOTE | ~2025-01-01 | US_ITS ---
EXAMINATION: US THYROID HISTORY: E04.9 - Nontoxic goiter, unspecified TECHNIQUE: Real-time grayscale ultrasound imaging was performed and images were reviewed. COMPARISON: Correlation is made with an unenhanced chest CT dated 10/14/2024. FINDINGS: SIZE: The right thyroid lobe measures 4.9 x 3.8 x 3.3 cm. The left thyroid lobe measures 4.4 x 3.4 x 1.2 cm. The isthmus measures 4 mm. FLOW: Flow to the gland is increased. ECHOGENICITY: The echotexture of the gland is heterogeneous. NODULES: Multiple bilateral thyroid nodules are identified as described below: Nodule #: 1 Location: Upper pole on the right measuring 10 x 8 x 10 mm Shape: Round Margins: Smoothly marginated Echotexture: Isoechoic Morphology: Solid Calcifications: Rim calcification noted TIRADS: TR4: Moderately suspicious. Nodule #: 2 Location: Upper pole on the right measuring 15 x 10 x 12 mm Shape: Ovoid, wider than tall Margins: Smoothly marginated Echotexture: Isoechoic Morphology: Solid Calcifications: None TIRADS: TR3: Mildly suspicious. Nodule #: 3 Location: Interpolar region on the right measuring 10 x 8 x 9 mm Shape: Round Margins: Smoothly marginated Echotexture: Isoechoic Morphology: Mostly solid Calcifications: Rim calcification TIRADS: TR4: Moderately suspicious. Nodule #: 4 Location: Lower pole on the left measuring 19 x 19 x 16 mm Shape: Ovoid, probably than wide Margins: Smoothly marginated Echotexture: Isoechoic Morphology: Solid Calcifications: None TIRADS: TR4: Moderately suspicious. Nodule #: 5 Location: Lower pole on the left measuring 7 x 7 x 7 mm Shape: Round Margins: Smoothly marginated Echotexture: Isoechoic Morphology: Solid Calcifications: Rim TIRADS: TR4: Moderately suspicious. US/US thyroid IMPRESSION: Multiple bilateral thyroid nodules as described above. Ultrasound-guided fine-needle aspiration of the 19 x 19 x 16 mm nodule at the lower pole of the left thyroid lobe (nodule #4) is recommended. The remaining nodules may be followed. ACR TI-RADS Guidelines TR1: Benign, No follow-up or biopsy required TR2: Not Suspicious, No biopsy indicated TR3: Mildly Suspicious, FNA if >= 2.5 cm, Follow if >= 1.5 cm TR4: Moderately Suspicious, FNA if >= 1.5 cm, Follow if >= 1.0 cm TR5: Highly Suspicious, FNA if >= 1.0 cm, Follow if >= 0.5 cm Electronically signed by: Brody Finley MD 01/13/2025 11:21 AM [facility]
--- NOTE | ~2025-01-01 | MM_ITS ---
EXAMINATION: DXA BONE DENSITY AXIAL HISTORY: Estrogen deficiency TECHNIQUE: Manifest Dual energy absorptiometry (DEXA) of the lumbar spine, total left hip, and femoral neck was performed. COMPARISON: Comparison is made with the prior examination dated 06/21/2022. FINDINGS: The bone mineral density of the lumbar spine is 1.082 with a T-score of -0.8, and a Z-score of 1.3. This represents a BMD change of 3.3% compared to the prior exam. This is statistically significant. The bone mineral density of the left total hip is 0.855 with a T-score of -1.2, and a Z-score of 0.6. This represents BMD change of .01% compared to the prior exam. This is not statistically significant. The bone mineral density of the left femoral neck is 0.744 with a T-score of -2.1, and a Z-score of -0.1. This represents BMD change of -1.6% compared to the prior exam. FRACTURE RISK: The FRAX index suggests a ten year probability of major osteoporotic fracture of 11.8%, and of hip fracture 3.0%. MM/XR DEXA axial skeleton IMPRESSION: Based on bone mineral density, and according to World Health Organization (WHO) criteria, the diagnosis is consistent with osteopenia. All bone density values are in grams per centimeter squared (g/cm2). Statistically, 68% of repeat scans fall within 1 SD (+/- 0.010 g/cm2 for AP spine L1-L4) and 1 SD (+/- 0.012 g/cm2 for femur total) FRAX is a trademark of the [employer] [place] [facility] Metabolic Bone Disease, a World Health Organization (WHO) Collaborating Center. Electronically signed by: Brody Finley MD 01/01/2025 11:36 AM [facility]
== END 2025-01-01 10:43 | disposition home or self-care (01) ==
LOC: HO.MAMMO 10:42
PROVIDERS: PCP Internal Medicine; Visit Provider Internal Medicine
DX: M81.0 Age-related osteoporosis without current pathological fracture (principal); M85.80 Other specified disorders of bone density and structure, unspecified site; E04.9 Nontoxic goiter, unspecified
CPT/HCPCS: 76536; 77080

== ENCOUNTER → 2025-01-01 11:00 | Outpatient (BNV) | payer MEDICARE, SELFPAY | PROVIDERS: PCP Internal Medicine; Visit Provider Radiology Diagnostic Radiology | DX: E28.39 Other primary ovarian failure (principal) | CPT/HCPCS: 76536; 77080 ==

== ENCOUNTER 2025-01-01 11:15 | Outpatient (REF) | payer MEDICARE, SELFPAY | END 2025-01-01 11:16 | disposition home or self-care (01) | LOC: HO.US 11:15 | PROVIDERS: PCP Internal Medicine; Visit Provider Internal Medicine | DX: Z13.89 Encounter for screening for other disorder (principal) ==

== ENCOUNTER 2025-01-09 13:43 | Outpatient (REF) | payer MEDICARE, SELFPAY ==
--- NOTE | ~2025-01-09 | XR_ITS ---
CLINICAL HISTORY: J40 - Bronchitis, not specified as acute or chronic Chest Radiographs, 2 views Comparison: None Findings: No cardiomegaly. Normal mediastinal contours. Hyperinflation. No pneumothorax. Lucency in the upper lobes, likely emphysema.. Chain sutures in the upper lobes seen on the lateral view indicating prior resection. There is a moderate amount of opacity at the lung bases with a linear appearance. Peribronchial thickening. No pleural effusion. Normal upper abdomen. No acute fracture. Impression: Bibasilar opacity could be secondary to infection. Edema may also be considered. Follow up is recommended. Hyperinflation, emphysema and peribronchial thickening likely indicating COPD. This document has been electronically signed by: Raiza Garcia MD on 01/10/2025 13:14:46
== END 2025-01-09 13:44 | disposition home or self-care (01) ==
LOC: HO.XRAY 13:43
PROVIDERS: PCP Internal Medicine; Visit Provider Internal Medicine
DX: J40 Bronchitis, not specified as acute or chronic (principal); J44.1 Chronic obstructive pulmonary disease with (acute) exacerbation; R09.02 Hypoxemia; Z99.81 Dependence on supplemental oxygen
CPT/HCPCS: 71046; 99212

== ENCOUNTER 2025-01-09 13:43 | Outpatient (AMB) | payer MEDICARE, SELFPAY ==
[2025-01-09 13:54] VITALS: BP 110/70; PULSE 108; TEMP 36.6; O2SAT 94
--- NOTE | 2025-01-09 13:54 | MHC.OFFVIS ---
Vital Signs 01/09/25 13:54 Height 5 ft 4 in BP 110/70 Blood Pressure Location Lt brachial Position Sitting Pulse 108 H Pulse Source Pulse Oximeter Temp 97.9 F Temp Source Skin Pulse Oximetry (%) 94 Oxygen Delivery Method Nasal Cannula Intake Visit Reasons: cough, congestion Intake Note: pt is here for a sick visit, she has been sick since last Monday, she is coughing, short of breath and a lot of phlegm, She is using oxygen at night on2.5 l and prn daytime this past week, she stated the phlegm is now green in color. Tax Audit Manager Required: No Allergies No Known Allergies [No Known Allergies*] Allergy (Verified 01/09/25 14:13) Medication List - Last Reconciled 01/09/25 by Bhakti Garcia MD fpsxkluluct-esatmwjeb-qlunivly 100-62.5-25 mcg (Trelegy Ellipta) 1 ea PO DAILY ipratropium-albuterol 20-100 mcg/actuation (Combivent Respimat) 1 puff inhalation Q6H PRN omega 0-jgd-dnw-fish oil 60-90-500 mg (Fish Oil) 1 cap PO DAILY Do you need a note to return to daycare/school/sports/work: No HPI HPI cough, congestion: Details: DILCIA IS 74 YEARS OLD VERY PLEASANT FEMALE, SHE IS A CASE OF ADVANCED CHRONIC OBSTRUCTIVE PULMONARY DISEASE. QUIT SMOKING 1 YEAR AGO. WAS DOING FAIRLY WELL, WITH THE TRELEGY ELLIPTA ONCE A DAY AND COMBIVENT RESPIMAT TO BE USED ONLY P.R.N.. SHE HAS O2 AT HOME WHICH SHE USES ONLY AT NIGHT FOR NOCTURNAL HYPOXEMIA. SINCE LAST WEEK SHE HAD A VIRUS ILLNESS, AND HAS BEEN GETTING MORE CONGESTED WITH SHORTNESS OF BREATH AND ALSO HAS HAD FREQUENT COUGH. TODAY SHE CAME FOR AN URGENT VISIT AND SHE ARRIVED IN THE OFFICE SHE WAS HYPOXEMIC REQUIRING O2 2 L/MINUTE. DENIES FEVER OR CHILLS. .ALSO DENIES ANY CHEST PAIN SHORT OF BREATH EVEN WHEN TALKING. NOW FEELING BETTER WITH O2 2 L/MINUTE. [facility] Medical History Bronchitis COPD exacerbation Positive colorectal cancer screening using Cologuard test Personal history of nicotine dependence Quit smoking within past year Dyspnea on minimal exertion Tobacco abuse History of pneumothorax (~2018) Hypoxemia requiring supplemental oxygen COPD (chronic obstructive pulmonary disease) Surgical History Hx of colonoscopy History of tubal ligation (~1979) History of lumpectomy of left breast (~2012) History of tonsillectomy History of lung surgery (~2018) Family History Mother Breast cancer Father Cancer Social History Housing: Apartment Alcohol intake: never Patient Tobacco Use Status: Former Tobacco user Tobacco use type: Cigarette Cigarette Packs Per Day: 1 Cigarettes Per Day: 20.0 Years Smoked: 55 e-Cigarette/Vaping Use: Never Used Second Hand Smoke Exposure: Yes service: No Current occupational status: retired Cognitive needs: No Hearing needs: No Vision needs: Yes Review of Systems Const All systems reviewed & are unremarkable except as noted in HPI and below Eyes Reports no additional complaints ENT Reports no additional complaints Card Denies chest pain, Denies irregular heart rhythm and Denies leg edema Resp Reports as per HPI GI Reports no additional complaints Reports no additional complaints Musc Reports no additional complaints Skin/Breast Reports system reviewed and no additional complaints, except as documented Neuro Reports no additional complaints Psych Reports no additional complaints Endo Reports no additional complaints Physical Exam Vital Signs: Last Vital Signs Temp 97.9 F 01/09/25 13:54 Pulse 108 H 01/09/25 13:54 BP 110/70 01/09/25 13:54 Pulse Ox 94 01/09/25 13:54 Oxygen Delivery Method Nasal Cannula 01/09/25 13:54 Const Other: Patient is of a thin build and looks comfortable, active . General: comfortable, alert and awake; No no acute distress (SHE IS VISIBLY SHORT OF BREATH, WHICH IS IMPROVED WITH O2.) Orientation/consciousness: patient oriented x3 HEENT Head: Yes normal to inspection General nose exam: No nasal polyps present and No nasal discharge present Face and sinus: Yes sinuses nontender Mouth: oropharynx normal Teeth and gingiva: other (Multiple fillings and if you extractions are noted) Throat: Yes posterior oropharynx normal Eyes General: appearance normal, both eyes and all related structures Neck Neck: Yes normal visual inspection, Yes no lymphadenopathy, Yes trachea midline and Yes no JVD Thyroid: Thyroid normal Chest Chest palpation & inspection: normal inspection of the chest, normal palpation of entire chest wall and no tenderness Resp Other: Percussion note hyper-resonant on both sides. Breath sounds are very distant with prolonged expiratory phase but equal on both sides. SHE HAS A FEW EXPIRATORY WHEEZES, NO CREPITATIONS. Cardio Palpation: normal PMI Rate: regular rate Rhythm: regular rhythm Heart sounds: no gallops and no murmurs Peripheral pulses: Peripheral pulses 2+ throughout GI Palpation (GI): Soft to palpation, nontender, No hepatosplenomegaly present and no masses Auscultation: normal bowel sounds Back/Spine/Pelvis Thoracic/Lumbar Spine: thoracic and lumbar spine normal to inspection Skin General skin exam: no rashes or lesions noted Neuro General: patient oriented x3 and no focal motor deficits Cranial nerves: Yes CN's II-XII intact bilaterally Extrem General: Yes normal to inspection, Yes no clubbing, cyanosis or edema and Yes no calf tenderness Psych Appearance: grossly normal and well kempt Speech and movement: Normal speech and movement present Assessment & Plan Assessment & Plan (1) COPD exacerbation: Comment: At her baseline she is known to have advanced chronic obstructive pulmonary disease. In addition to Trelegy Ellipta once a day she is also on O2 2 L/minute at night. She has had a viral illness since last week with increased cough and shortness of breath. I think she has an acute exacerbation of COPD. We need to rule out pneumonia. Code(s): J44.1 - Chronic obstructive pulmonary disease with (acute) exacerbation Category: Medical Plan: Continue Trelegy. 1 inhalation daily Combivent Respimat 1 inhalation Q 4-6 hours p.r.n.. Prednisone 20 mg b.i.d. for 5 days. Doxycycline 100 mg b.i.d. for 7 days (2) Bronchitis: Comment: She has acute viral bronchitis, resulting in acute exacerbation of COPD. Code(s): J40 - Bronchitis, not specified as acute or chronic Category: Medical Plan: Chest x-ray ordered to rule out pneumonia. [place] : As noted under COPD exacerbation . Also may use DayQuil syrup 1 tsp q.6 hours during daytime and NyQuil 1 or 2 tsp at night for cough (3) Hypoxemia requiring supplemental oxygen: Comment: She has history of exercise induced hypoxemia. Does have O2 concentrator and also portable cylinders at home. However she has used O2 only at night and p.r.n. during the daytime. Today she was hypoxemic on arrival to the office. She is started on O2 2 L/minute with portable cylinder . Code(s): R09.02 - Hypoxemia; Z99.81 - Dependence on supplemental oxygen Category: Medical Plan: Advised to use O2 2 L/minute during the daytime also especially if she is walking around. Will see if she can get small size cylinders easy to carry. Orders: Orders XR chest 2V Today J40 - Bronchitis, not specified as acute or chronic, J44.1 - Chronic obstructive pulmonary disease with (acute) exacerbation Medications: New prednisone 20 mg PO BID 5 days 10 tabs 0RF copd excerbation doxycycline hyclate 100 mg PO BID 7 days 14 tabs 0RF Bronchitis Coding Level of Care Code Est Pt Level 4 (21215) Diagnoses COPD exacerbation J44.1 Bronchitis J40 Hypoxemia requiring supplemental oxygen R09.02; Z99.81
== END 2025-01-09 14:18 | disposition home or self-care (01) ==
PROVIDERS: PCP Internal Medicine; Visit Provider Internal Medicine
DX: J44.1 Chronic obstructive pulmonary disease with (acute) exacerbation (principal); J40 Bronchitis, not specified as acute or chronic; R09.02 Hypoxemia; Z99.81 Dependence on supplemental oxygen
CPT/HCPCS: 99214

== ENCOUNTER → 2025-01-09 14:24 | Outpatient (BNV) | payer MEDICARE, SELFPAY | PROVIDERS: PCP Internal Medicine; Visit Provider Radiology Diagnostic Radiology | DX: J44.1 Chronic obstructive pulmonary disease with (acute) exacerbation (principal) | CPT/HCPCS: 71046 ==

== ENCOUNTER 2025-01-10 13:13 | Outpatient (AMB) | payer MEDICARE, SELFPAY ==
--- NOTE | 2025-01-10 13:14 | MHC.PC.OV ---
Intake Visit Reasons: Cold Symptoms Allergies No Known Allergies [No Known Allergies*] Allergy (Verified 01/10/25 13:14) Tobacco use date assessed: 01/10/25 Fall risk assessment: No Falls in past year Last assessed Fall Risk: 01/10/25 Dental Screening Dental Screen Date: 01/10/25 Did you have a dental visit in the last 12 months?: Yes Did you have a dental problem in the last 6 months where you did not have access to dental care?: No Was dental information given to patient?: Patient has dentist HPI Cold Symptoms HPI Details The patient is a 74-year-old female presenting with a follow-up for a recent pulmonary infection and chronic conditions management. She has a history of Chronic Obstructive Pulmonary Disease (COPD) and was seen by a firefighting equipment specialist on January 09. At that time, she was treated with prednisone and doxycycline for an infection revealed by chest X-ray, which indicated widespread vascular opacity likely secondary to infection. A subsequent CAT scan was performed in September 2024, with pending results expected in December 2024. Her last blood work conducted on December 03 showed normal blood parameters; however, it revealed hypercholesterolemia for which the patient has been working to manage with a plant-based diet. During the conversation, it was also noted that she had an ultrasound of the thyroid and remains in anticipation of those results. The patient has confirmed improvement in the infection since initiating antibiotics and steroids and has ceased smoking, which is crucial for her COPD management. - Respiratory: Reports recent improvement of pulmonary infection. Denies current respiratory distress. - Endocrine: Denies any thyroid-related symptoms. [facility] Medical History Bronchitis COPD exacerbation Positive colorectal cancer screening using Cologuard test Personal history of nicotine dependence Quit smoking within past year Dyspnea on minimal exertion Tobacco abuse History of pneumothorax (~2018) Hypoxemia requiring supplemental oxygen COPD (chronic obstructive pulmonary disease) Surgical History Hx of colonoscopy History of tubal ligation (~1979) History of lumpectomy of left breast (~2012) History of tonsillectomy History of lung surgery (~2018) Family History Mother Breast cancer Father Cancer Social History Housing: Apartment Alcohol intake: never Patient Tobacco Use Status: Former Tobacco user Tobacco use type: Cigarette Cigarette Packs Per Day: 1 Cigarettes Per Day: 20.0 Years Smoked: 55 e-Cigarette/Vaping Use: Never Used Second Hand Smoke Exposure: Yes service: No Current occupational status: retired Cognitive needs: No Hearing needs: No Vision needs: Yes Questionnaire PHQ-9 Over the last 2 weeks, how often have you been bothered by any of the following problems? 1. Little interest or pleasure in doing things: not at all 2. Feeling down, depressed, or hopeless: not at all 3. Trouble falling or staying asleep, or sleeping too much: nearly every day 4. Feeling tired or having little energy: not at all 5. Poor appetite or overeating: not at all 6. Feeling bad about yourself - or that you are a failure or have let yourself or your family down: not at all 7. Trouble concentrating on things, such as reading the newspaper or watching television: not at all 8. Moving or speaking so slowly that other people could have noticed. Or the opposite - being so fidgety or restless that you have been moving around a lot more than usual: not at all 9. Thoughts that you would be better off or of hurting yourself in some way: not at all Total score: 3 Depression Screening Interpretation: Positive Depression Screening Done: Yes 97534 - PHQ-9 Billing: Yes Source: Developed by Drs. Brody Fitch, Curtis Ni and colleagues, with an educational lane from [employer]. Thrive Questionnaire Date Thrive assessed: 11/27/24 GEOFF-7 AMB Questionnaire GEOFF-7 Date GEOFF - 7 assessed: 11/27/24 Source: Developed by Drs. Brody Fitch, Curtis Ni and colleagues, with an educational lane from [employer]. Physical exam (Primary Care) Tobacco/Smoking Status: Tobacco use Status Tobacco use date assessed 01/10/25 01/10/25 13:15 Patient Tobacco Use Status Former Tobacco user 01/10/25 13:15 Tobacco use type Cigarette 01/10/25 13:15 e-Cigarette/Vaping Use Never Used 01/10/25 13:15 PHQ-9: PHQ-9 Score PHQ-9: Total score 3 01/10/25 14:08 Depression Screening Interpretation: Positive Thrive Assessment: Date of Thrive Assessment Date Thrive assessed 11/27/24 01/10/25 13:15 Telehealth Telehealth Telehealth Platform: Telephone Location of provider rendering services: practice address Location of patient: address on file Patient Identification confirmed using: Name, : Yes Telehealth method: voice only Patient verbally consented to treatment: Yes Patient verbally consented to billing insurance company: Yes Patient informed of any privacy concerns related to visit: Yes Coding Level of Care Code Est Pt Level 4 (13803) Diagnoses Bronchitis J40 Personal history of nicotine dependence Z87.891 COPD (chronic obstructive pulmonary disease) J44.9 Hypercholesterolemia E78.00 Thyroid enlarged E04.9 Additional Codes PHQ-9 - 37307 - PHQ-9 Billing: Yes ([id number]) Assessment & Plan Assessment & Plan (1) Bronchitis: Comment: She has acute viral bronchitis, resulting in acute exacerbation of COPD. Code(s): J40 - Bronchitis, not specified as acute or chronic Category: Medical Plan: Patient placed on antibiotic doxycycline and prednisone. Patient does have a follow-up with the Pulmonary in 2 weeks. Feeling a little bit better with antibiotic. (2) Personal history of nicotine dependence: Comment: (former smoker, onset 19yo, x 46yrs, max1-2ppd quit for 6yr, now 1/2ppd - 40pyh) QUIT COMPLETELY SINCE LAST YEAR CT scan 10/09/2024 Code(s): Z87.891 - Personal history of nicotine dependence Category: Medical Plan: Happy that patient stop smoking. CT scan 10/09/2024Multiple pulmonary nodules are unchanged. No new or increasing sized nodule is seen. 2. New area of linear scarring/atelectasis in the left upper lobe. 3. Severe emphysema. 4. Enlarged thyroid with multiple masses and calcifications. Dedicated thyroid ultrasound is again recommended as was recommended previously. (3) COPD (chronic obstructive pulmonary disease): Comment: (severe obstructive pulmonary disease - stable and controlled) May 2023 CT scan Severe bullous emphysema. Code(s): J44.9 - Chronic obstructive pulmonary disease, unspecified Category: Medical Plan: continue with trelegy (4) Hypercholesterolemia: Code(s): E78.00 - Pure hypercholesterolemia, unspecified Category: Medical Plan: diet and exercise (5) Thyroid enlarged: Comment: December 2024 Code(s): E04.9 - Nontoxic goiter, unspecified Category: Medical Plan: Results are pending Plan History of Present Illness The patient is a 74-year-old female presenting with a follow-up for a recent pulmonary infection and chronic conditions management. She has a history of Chronic Obstructive Pulmonary Disease (COPD) and was seen by a firefighting equipment specialist on January 09. At that time, she was treated with prednisone and doxycycline for an infection revealed by chest X-ray, which indicated widespread vascular opacity likely secondary to infection. A subsequent CAT scan was performed in September 2024, with pending results expected in December 2024. Her last blood work conducted on December 03 showed normal blood parameters; however, it revealed hypercholesterolemia for which the patient has been working to manage with a plant-based diet. During the conversation, it was also noted that she had an ultrasound of the thyroid and remains in anticipation of those results. The patient has confirmed improvement in the infection since initiating antibiotics and steroids and has ceased smoking, which is crucial for her COPD management. Review of Systems - Respiratory: Reports recent improvement of pulmonary infection. Denies current respiratory distress. - Endocrine: Denies any thyroid-related symptoms. Plan Patient was informed and verbally consented to the use of an ambient scribe for clinic note documentation during this visit. 1. Hypercholesterolemia Encourage continuation of the plant-based diet to reduce cholesterol levels. Consider further lipid profile evaluation to assess the impact of dietary changes. 2. Bacterial Pneumonia Continue current regimen of doxycycline and prednisone. Follow up with a chest X-ray in approximately one month to assess resolution of pneumonia. Await results of the pending CAT scan and arrange a follow-up with the firefighting equipment specialist. 3. Chronic Obstructive Pulmonary Disease Copd Continue monitoring lung function and manage COPD with cessation of smoking. Follow up on antibiotic and prednisone treatment response indicated in recent infection management. Discussion Notes During the visit, I discussed with the patient the current management plan for her COPD, including the importance of adhering to prescribed medications and maintaining a smoke-free lifestyle. We reviewed the antibiotic and steroid course for her bacterial pneumonia and the necessity of a follow-up chest X-ray to ensure resolution of infection. Additionally, I informed her of the pending results of her CAT scan and the thyroid ultrasound, emphasizing the importance of upcoming follow-ups. We also discussed her hypercholesterolemia management. I commended her dietary adjustments and reinforced the need for regular monitoring of her lipid levels to gauge the effectiveness of her lifestyle changes. The patient is scheduled to follow up in two weeks with her firefighting equipment specialist, which I advised to stay on top of her lung health. Patient Instructions - Continue with the prescribed doxycycline and prednisone treatment as directed. - Maintain a smoke-free lifestyle for COPD management. - Adhere to the plant-based diet to help manage cholesterol levels. - Schedule a follow-up chest X-ray in one month to evaluate the resolution of pneumonia. - Attend the appointment with the firefighting equipment specialist in two weeks. - Await the results of the CAT scan and thyroid ultrasound and discuss findings in the next appointment.
== END 2025-01-10 16:53 | disposition home or self-care (01) ==
LOC: HO.HMCH 13:13
PROVIDERS: PCP Internal Medicine; Visit Provider Internal Medicine
DX: J40 Bronchitis, not specified as acute or chronic (principal); Z87.891 Personal history of nicotine dependence; J44.9 Chronic obstructive pulmonary disease, unspecified; E78.00 Pure hypercholesterolemia, unspecified; E04.9 Nontoxic goiter, unspecified

== ENCOUNTER → 2025-01-10 13:13 | Outpatient (BNVA) | payer MEDICARE, SELFPAY | PROVIDERS: PCP Internal Medicine; Visit Provider Internal Medicine | DX: J40 Bronchitis, not specified as acute or chronic (principal); J44.9 Chronic obstructive pulmonary disease, unspecified; E78.00 Pure hypercholesterolemia, unspecified; E04.9 Nontoxic goiter, unspecified; Z87.891 Personal history of nicotine dependence | CPT/HCPCS: 96127; 99212 ==

== ENCOUNTER 2025-01-23 13:03 | Outpatient (AMB) | payer MEDICARE, SELFPAY ==
[2025-01-23 13:06] VITALS: BP 120/80; PULSE 103; O2SAT 95; BMI 19.9
--- NOTE | 2025-01-23 13:06 | A.OFFVIS_ITS ---
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 She is a case of advanced chronic obstructive pulmonary disease due to her previous smoking. Recently treated for an acute exacerbation due to acute bronchitis, with a course of prednisone and doxycycline. Today she comes for a short term follow-up and claims that she is feeling much better. The only issue is that she still has residual cough. She denies wheezing. She is using O2 2 L/minute only during daytime when she goes outdoors. [facility] Medical History Bronchitis COPD exacerbation Positive colorectal cancer screening using Cologuard test Personal history of nicotine dependence Quit smoking within past year Dyspnea on minimal exertion Tobacco abuse History of pneumothorax (~2018) Hypoxemia requiring supplemental oxygen COPD (chronic obstructive pulmonary disease) Surgical History Hx of colonoscopy History of tubal ligation (~1979) History of lumpectomy of left breast (~2012) History of tonsillectomy History of lung surgery (~2019) Family History Mother Breast cancer Father Cancer Social History Housing: Apartment Alcohol intake: never Patient Tobacco Use Status: Former Tobacco user Tobacco use type: Cigarette Cigarette Packs Per Day: 1 Cigarettes Per Day: 20.0 Years Smoked: 55 e-Cigarette/Vaping Use: Never Used Second Hand Smoke Exposure: Yes service: No Current occupational status: retired Cognitive needs: No Hearing needs: No Vision needs: Yes Review of Systems Const All systems reviewed & are unremarkable except as noted in HPI and below Eyes Reports no additional complaints ENT Reports no additional complaints Card Denies chest pain, Denies irregular heart rhythm and Denies leg edema Resp Reports as per HPI GI Reports no additional complaints Reports no additional complaints Musc Reports no additional complaints Skin/Breast Reports system reviewed and no additional complaints, except as documented Neuro Reports no additional complaints Psych Reports no additional complaints Endo Reports no additional complaints Physical Exam Vital Signs: Last Vital Signs Pulse 103 H 01/23/25 13:06 BP 120/80 01/23/25 13:06 Pulse Ox 95 01/23/25 13:06 Oxygen Delivery Method Nasal Cannula 01/23/25 13:06 Oxygen Flow Rate 2 01/23/25 13:06 BMI result Body Mass Index 19.9 Const Other: Patient is of a thin build and looks comfortable, active . General: comfortable, alert and awake; No no acute distress (SHE IS VISIBLY SHORT OF BREATH, WHICH IS IMPROVED WITH O2.) Orientation/consciousness: patient oriented x3 HEENT Head: Yes normal to inspection General nose exam: No nasal polyps present and No nasal discharge present Face and sinus: Yes sinuses nontender Mouth: oropharynx normal Teeth and gingiva: other (Multiple fillings and if you extractions are noted) Throat: Yes posterior oropharynx normal Eyes General: appearance normal, both eyes and all related structures Neck Neck: Yes normal visual inspection, Yes no lymphadenopathy, Yes trachea midline and Yes no JVD Thyroid: Thyroid normal Chest Chest palpation & inspection: normal inspection of the chest, normal palpation of entire chest wall and no tenderness Resp Other: Percussion note hyper-resonant on both sides. Breath sounds are very distant with prolonged expiratory phase but equal on both sides. No wheezes rhonchi or crepitations are heard today. Cardio Palpation: normal PMI Rate: regular rate Rhythm: regular rhythm Heart sounds: no gallops and no murmurs Peripheral pulses: Peripheral pulses 2+ throughout GI Palpation (GI): Soft to palpation, nontender, No hepatosplenomegaly present and no masses Auscultation: normal bowel sounds Back/Spine/Pelvis Thoracic/Lumbar Spine: thoracic and lumbar spine normal to inspection Skin General skin exam: no rashes or lesions noted Neuro General: patient oriented x3 and no focal motor deficits Cranial nerves: Yes CN's II-XII intact bilaterally Extrem General: Yes normal to inspection, Yes no clubbing, cyanosis or edema and Yes no calf tenderness Psych Appearance: grossly normal and well kempt Speech and movement: Normal speech and movement present Results Reviewed Results Reviewed: Chest x-ray which was performed on her last visit is reviewed with the patient. It is showing marked hyperinflation consistent with pulmonary emphysema, and minimal streaky opacities in the basilar areas probably due to atelectasis. Assessment & Plan Assessment & Plan (1) COPD (chronic obstructive pulmonary disease): Comment: (severe obstructive pulmonary disease - stable and controlled) May 2023 CT scan Severe bullous emphysema. Code(s): J44.9 - Chronic obstructive pulmonary disease, unspecified Category: Medical Plan: Continue using Trelegy 1 inhalation daily Combivent Respimat 1 inhalation Q 6 hours p.r.n. For cough she can use Mucinex syrup 2 tsp t.i.d. or Robitussin 2 tsp t.i.d.. (2) Hypoxemia requiring supplemental oxygen: Comment: She has history of exercise induced hypoxemia. Does have O2 concentrator and also portable cylinders at home. However she has used O2 only at night and p.r.n. during the daytime. Code(s): R09.02 - Hypoxemia; Z99.81 - Dependence on supplemental oxygen Category: Medical Plan: O2 2 L/minute at night. 2 L/minute p.r.n. for any daytime physical activity or going outdoors. (3) Personal history of nicotine dependence: Comment: (former smoker, onset 19yo, x 46yrs, max1-2ppd quit for 6yr, now 1/2ppd - 40pyh) QUIT COMPLETELY SINCE LAST YEAR CT scan 10/09/2024 Code(s): Z87.891 - Personal history of nicotine dependence Category: Medical Plan: Advised to continue participating in annual lung screening program (4) COPD exacerbation: Comment: She was seen with aggravated respiratory symptoms and clinically considered to have acute bronchitis complicating COPD. She was prescribed short course of prednisone and also doxycycline for 1 week, and after taking this medical regimen she has felt much better. At this time her acute exacerbation seems to have resolved. She still has some residual cough which is expected to go always slowly in the next few weeks Code(s): J44.1 - Chronic obstructive pulmonary disease with (acute) exacerbation Category: Medical Plan: as above Coding Level of Care Code Est Pt Level 3 (16858) Diagnoses COPD (chronic obstructive pulmonary disease) J44.9 Hypoxemia requiring supplemental oxygen R09.02; Z99.81 Personal history of nicotine dependence Z87.891 COPD exacerbation J44.1
== END 2025-01-23 13:25 | disposition home or self-care (01) ==
PROVIDERS: PCP Internal Medicine; Visit Provider Internal Medicine
DX: J44.9 Chronic obstructive pulmonary disease, unspecified (principal); R09.02 Hypoxemia; Z99.81 Dependence on supplemental oxygen; Z87.891 Personal history of nicotine dependence; J44.1 Chronic obstructive pulmonary disease with (acute) exacerbation
CPT/HCPCS: 99213

== ENCOUNTER → 2025-01-23 13:03 | Outpatient (BNVA) | payer MEDICARE, SELFPAY | PROVIDERS: PCP Internal Medicine; Visit Provider Internal Medicine | DX: J44.1 Chronic obstructive pulmonary disease with (acute) exacerbation (principal); R09.02 Hypoxemia; Z99.81 Dependence on supplemental oxygen; Z87.891 Personal history of nicotine dependence | CPT/HCPCS: 99212 ==

== ENCOUNTER 2025-02-14 07:44 | Outpatient (AMB) | payer MEDICARE, SELFPAY ==
--- NOTE | 2025-02-14 07:52 | MHC.OFFVIS ---
Vital Signs 02/14/25 07:56 Height 5 ft 5.39 in Weight 112 lb 6.972 oz BMI 18.5 BP 120/80 Blood Pressure Location Rt brachial Position Sitting Pulse 84 Pulse Source Pulse Oximeter Pulse Oximetry (%) 96 Oxygen Delivery Method Room Air Intake Visit Reasons: Nontoxic single thyroid nodule Intake Note: New patient present today for Nontoxic single thyroid nodule office visit. Accompanied by: Self / Same As Patient Allergies No Known Allergies [No Known Allergies*] Allergy (Verified 02/14/25 07:57) Medication List - Last Reconciled 02/14/25 by Maine Izquierdo MD [id number] 100-62.5-25 mcg (Trelegy Ellipta) 1 ea PO DAILY ipratropium-albuterol 20-100 mcg/actuation (Combivent Respimat) 1 puff inhalation Q6H PRN omega 1-hmp-qbg-fish oil 60-90-500 mg (Fish Oil) 1 cap PO DAILY HPI Comments Details: 74-year-old female coming in today for initial evaluation of nontoxic multinodular goiter. Patient has a 50 pack-year history of smoking, quit 30 [address] in undergo CT low-dose screenings, CT scan chest done September 2024 pointed towards an enlarged thyroid with multiple calcifications and nodules. Ultrasound thyroid 01/01/2025: I reviewed the images myself which showed multiple bilateral nodules, with the right superior 1 cm TR 4 solid isoechoic nodule with rim calcification, another right superior 1.5 cm solid, isoechoic TR 3 nodule, a right mid lobe 1 cm solid, isoechoic TR 4 nodule with rim calcification, a left lower pole 1.9 cm solid, isoechoic, TTW TR 5 nodule (this meets criteria for FNA), and left lower pole subcentimeter TR 4 nodule. Patient currently denies heat or cold intolerance, diarrhea or constipation, hair loss, palpitation, anxiety, weight changes, mood changes, low energy, changes in appearance of eyes or vision changes, tremors, increased diaphoresis or dry skin. ? Patient denies any difficulty swallowing, pain on swallowing or voice changes or difficulty breathing. Patient denies any history of childhood neck radiation. Denies having ever used lithium, amiodarone or biotin supplements. Patient denies any family history of thyroid cancer or thyroid disease. Physical exam General: sitting comfortably in no acute distress HEENT: normocephalic/atraumatic, moist oral mucosa Neck: supple, palpable 1 cm right-sided nodule, palpable 1 cm left-sided nodule Cardiac: normal heart sounds Pulm: normal breath sounds B/L, no added breath sounds Abd: not distended, no tenderness Extremities: no edema, no signs of myxedema Laboratory Tests 12/03/24 08:19 TSH 1.31 Free T4 1.32 EXAMINATION: US THYROID 01/01/25 HISTORY: E04.9 - Nontoxic goiter, unspecified TECHNIQUE: Real-time grayscale ultrasound imaging was performed and images were reviewed. COMPARISON: Correlation is made with an unenhanced chest CT dated 10/14/2024. FINDINGS: SIZE: The right thyroid lobe measures 4.9 x 3.8 x 3.3 cm. The left thyroid lobe measures 4.4 x 3.4 x 1.2 cm. The isthmus measures 4 mm. FLOW: Flow to the gland is increased. ECHOGENICITY: The echotexture of the gland is heterogeneous. NODULES: Multiple bilateral thyroid nodules are identified as described below: Nodule #: 1 Location: Upper pole on the right measuring 10 x 8 x 10 mm Shape: Round Margins: Smoothly marginated Echotexture: Isoechoic Morphology: Solid Calcifications: Rim calcification noted TIRADS: TR4: Moderately suspicious. Nodule #: 2 Location: Upper pole on the right measuring 15 x 10 x 12 mm Shape: Ovoid, wider than tall Margins: Smoothly marginated Echotexture: Isoechoic Morphology: Solid Calcifications: None TIRADS: TR3: Mildly suspicious. Nodule #: 3 Location: Interpolar region on the right measuring 10 x 8 x 9 mm Shape: Round Margins: Smoothly marginated Echotexture: Isoechoic Morphology: Mostly solid Calcifications: Rim calcification TIRADS: TR4: Moderately suspicious. Nodule #: 4 Location: Lower pole on the left measuring 19 x 19 x 16 mm Shape: Ovoid, probably than wide Margins: Smoothly marginated Echotexture: Isoechoic Morphology: Solid Calcifications: None TIRADS: TR4: Moderately suspicious. Nodule #: 5 Location: Lower pole on the left measuring 7 x 7 x 7 mm Shape: Round Margins: Smoothly marginated Echotexture: Isoechoic Morphology: Solid Calcifications: Rim TIRADS: TR4: Moderately suspicious. US/US thyroid IMPRESSION: Multiple bilateral thyroid nodules as described above. Ultrasound-guided fine-needle aspiration of the 19 x 19 x 16 mm nodule at the lower pole of the left thyroid lobe (nodule #4) is recommended. The remaining nodules may be followed. [facility] Medical History Bronchitis COPD exacerbation Positive colorectal cancer screening using Cologuard test Personal history of nicotine dependence Quit smoking within past year Dyspnea on minimal exertion Tobacco abuse History of pneumothorax (~2018) Hypoxemia requiring supplemental oxygen COPD (chronic obstructive pulmonary disease) Surgical History Hx of colonoscopy History of tubal ligation (~1979) History of lumpectomy of left breast (~2012) History of tonsillectomy History of lung surgery (~2018) Family History Mother Breast cancer Father Cancer Social History Housing: Apartment Alcohol intake: never Patient Tobacco Use Status: Former Tobacco user Tobacco use type: Cigarette Cigarette Packs Per Day: 1 Cigarettes Per Day: 20.0 Years Smoked: 55 e-Cigarette/Vaping Use: Never Used Second Hand Smoke Exposure: Yes service: No Current occupational status: retired Cognitive needs: No Hearing needs: No Vision needs: Yes Physical Exam Vital Signs: BMI result Body Mass Index 18.5 Assessment & Plan Assessment & Plan (1) Multinodular goiter (nontoxic): Code(s): E04.2 - Nontoxic multinodular goiter Category: Medical Plan: 74-year-old female with no family history of thyroid cancer, with no personal history of head or neck radiation coming in today for initial evaluation of nontoxic multinodular goiter. Patient has a 50 pack-year history of smoking, quit 30 years ago in undergo CT low-dose screenings, CT scan chest done September 2024 pointed towards an enlarged thyroid with multiple calcifications and nodules. Ultrasound thyroid 01/01/2025: I reviewed the images myself which showed multiple bilateral nodules, with the right superior 1 cm TR 4 solid isoechoic nodule with rim calcification, another right superior 1.5 cm solid, isoechoic TR 3 nodule, a right mid lobe 1 cm solid, isoechoic TR 4 nodule with rim calcification, a left lower pole 1.9 cm solid, isoechoic, TTW TR 5 nodule (this meets criteria for FNA), and left lower pole subcentimeter TR 4 nodule. I explained that it is common to have thyroid nodules. About 95% of the time these nodules are benign. However if the nodule is > 1 cm in size or suspicious on ultrasound then a fine need aspiration biopsy is recommended. We discussed that a FNAB involves 4-5 passes with a small gauge needle and material obtained is sent off for cytology.If the cytopathology is benign then the nodule will be followed annually with repeat ultrasounds. However if it is suspicious or malignant, we will need to discuss further management. Indeterminate cytology can be further investigated with repeat FNA, genetic testing or empiric lobectomy. Malignant cytology is managed with either lobectomy or total thyroidectomy. We discussed briefly that thyroid cancer is, in most patients, an indolent disease that does not affect mortality. She has no compressive symptoms, normal TSH from November 2024. We will arrange for FNA of the left lower 1.9 cm thyroid nodule at next available opening and patient will follow up with me in clinic thereafter for results and further decision making. Plan: -scheduled for FNA of the left lower 1.9 cm thyroid nodule and a follow up 2 weeks after to discuss results Plan I spent 45 minutes in reviewing the record, seeing the patient and documenting in the medical record. Orders: Orders US biopsy thyroid Today E04.2 - Nontoxic multinodular goiter Coding Level of Care Code New Pt Level 4 (09742) Diagnoses Multinodular goiter (nontoxic) E04.2 Time Spent (min) 45
[2025-02-14 07:56] VITALS: BP 120/80; PULSE 84; O2SAT 96; BMI 18.5
== END 2025-02-14 08:33 | disposition home or self-care (01) ==
LOC: HO.ENCR 07:45
PROVIDERS: PCP Internal Medicine; Visit Provider Student in an Organized Health Care Education/Training Program
DX: E04.2 Nontoxic multinodular goiter (principal)
CPT/HCPCS: 99204

== ENCOUNTER → 2025-02-14 07:44 | Outpatient (BNVA) | payer MEDICARE, SELFPAY | PROVIDERS: PCP Internal Medicine; Visit Provider Student in an Organized Health Care Education/Training Program | DX: E04.2 Nontoxic multinodular goiter (principal) | CPT/HCPCS: 99202 ==

== ENCOUNTER 2025-03-03 10:43 | Outpatient (AMB) | payer MEDICARE, SELFPAY ==
[2025-03-03 10:46] VITALS: BP 146/84; PULSE 59; TEMP 36.2; O2SAT 92; BMI 19.3
--- NOTE | 2025-03-03 10:46 | MHC.PC.OV ---
Vital Signs 03/03/25 10:46 Height 5 ft 4 in Weight 112 lb 8 oz BMI 19.3 BP 146/84 H Blood Pressure Location Lt brachial Position Sitting Pulse 59 Pulse Source Pulse Oximeter Temp 97.1 F Temp Source Temporal Artery Scan Pulse Oximetry (%) 92 Oxygen Delivery Method Room Air Intake Visit Reasons: Blood pressure elevation Allergies No Known Allergies [No Known Allergies*] Allergy (Verified 03/03/25 10:47) Tobacco use date assessed: 01/10/25 Fall risk assessment: No Falls in past year Last assessed Fall Risk: 01/10/25 Dental Screening Dental Screen Date: 01/10/25 Did you have a dental visit in the last 12 months?: Yes Did you have a dental problem in the last 6 months where you did not have access to dental care?: No Was dental information given to patient?: Patient has dentist HPI Blood pressure elevation HPI Details February thyroid biopsy 2024 [facility] Medical History Multinodular goiter (nontoxic) Bronchitis COPD exacerbation Positive colorectal cancer screening using Cologuard test Personal history of nicotine dependence Quit smoking within past year Dyspnea on minimal exertion Tobacco abuse History of pneumothorax (~2018) Hypoxemia requiring supplemental oxygen COPD (chronic obstructive pulmonary disease) Surgical History Hx of colonoscopy History of tubal ligation (~1979) History of lumpectomy of left breast (~2012) History of tonsillectomy History of lung surgery (~2018) Family History Mother Breast cancer Father Cancer Social History Housing: Apartment Alcohol intake: never Patient Tobacco Use Status: Former Tobacco user Tobacco use type: Cigarette Cigarette Packs Per Day: 1 Cigarettes Per Day: 20.0 Years Smoked: 55 Packs Per Year: 55 Packs per year/per ci.00 e-Cigarette/Vaping Use: Never Used Second Hand Smoke Exposure: Yes service: No Current occupational status: retired Cognitive needs: No Hearing needs: No Vision needs: Yes Questionnaire PHQ-9 Over the last 2 weeks, how often have you been bothered by any of the following problems? 1. Little interest or pleasure in doing things: not at all 2. Feeling down, depressed, or hopeless: not at all 3. Trouble falling or staying asleep, or sleeping too much: nearly every day 4. Feeling tired or having little energy: not at all 5. Poor appetite or overeating: not at all 6. Feeling bad about yourself - or that you are a failure or have let yourself or your family down: not at all 7. Trouble concentrating on things, such as reading the newspaper or watching television: not at all 8. Moving or speaking so slowly that other people could have noticed. Or the opposite - being so fidgety or restless that you have been moving around a lot more than usual: not at all 9. Thoughts that you would be better off or of hurting yourself in some way: not at all Total score: 3 Depression Screening Interpretation: Positive Depression Screening Done: Yes Source: Developed by Drs. Brody Fitch, Anay Portillo, Curtis Middleton and colleagues, with an educational lane from [employer]. Thrive Questionnaire Date Thrive assessed: 11/27/24 I am a: Patient What is your living situation today?: I have a steady place to live Within the past 12 months, did the food you bought not last and you didn't have the money to get more?: Never true Within the past 12 months, did you worry whether your food would run out before you got money to buy more?: Never true Do you have trouble paying for medicines?: No Do you have trouble getting transportation to medical appointments?: No Do you have trouble paying your heating and electricity bill?: No Do you have trouble taking care of your child, family member or friend?: No Do you have trouble with day-to-day activities such as bathing, preparing meals, shopping, managing finances, etc.?: No Are you currently unemployed and looking for a job?: No Are you interested in more education?: No Currently or been in a relationship where the following occur: No concerns reported THRIVE Score: 0 AUDIT C Alcohol Use Questionnaire (AUDIT-C) 1. How often do you have a drink containing alcohol?: Never 3. How often do you have six or more drinks on one occasion?: Never Total Score: 0 Score Reviewed/Action Taken: No GEOFF-7 AMB Questionnaire GEOFF-7 Date GEOFF - 7 assessed: 11/27/24 Feeling nervous, anxious, or on edge: 0 = Not at all Not being able to stop or control worryin = Not at all Worrying too much about different things: 0 = Not at all Trouble relaxin = Not at all Being so restless that it is hard to sit still: 0 = Not at all Becoming easily annoyed or irritable: 0 = Not at all Feeling afraid as if something awful might happen: 0 = Not at all Total GEOFF-7 score (0-4 normal; 5-9 mild; 10-14 moderate; 15-21 severe): 0 Source: Developed by Drs. Brody Fitch, Anay Portillo, Curtis Middleton and colleagues, with an educational lane from [employer]. Physical exam (Primary Care) Vital Signs: Last Vital Signs Temp 97.1 F 03/03/25 10:46 Pulse 59 03/03/25 10:46 BP 146/84 H 03/03/25 10:46 Pulse Ox 92 03/03/25 10:46 Oxygen Delivery Method Room Air 03/03/25 10:46 BMI result Body Mass Index 19.3 Tobacco/Smoking Status: Tobacco use Status Tobacco use date assessed 01/10/25 03/03/25 10:50 Patient Tobacco Use Status Former Tobacco user 03/03/25 10:50 Tobacco use type Cigarette 03/03/25 10:50 e-Cigarette/Vaping Use Never Used 03/03/25 10:50 PHQ-9: PHQ-9 Score PHQ-9: Total score 3 03/03/25 11:18 Depression Screening Interpretation: Positive Thrive Assessment: Date of Thrive Assessment Date Thrive assessed 11/27/24 03/03/25 10:50 Currently or been in a relationship where the following occur: No concerns reported Const General: alert; No acute distress Eyes Conjunctivae: conjunctivae normal Resp Auscultation: clear to auscultation bilaterally Cardio Rate: regular rate Rhythm: regular rhythm GI Inspection: Yes normal to inspection Extrem General: Yes normal to inspection and No edema Coding Level of Care Code Est Pt Level 4 (21722) Diagnoses Multinodular goiter (nontoxic) E04.2 Hypercholesterolemia E78.00 COPD (chronic obstructive pulmonary disease) J44.9 Assessment & Plan Assessment & Plan (1) Multinodular goiter (nontoxic): Code(s): E04.2 - Nontoxic multinodular goiter Category: Medical Plan: Patient has met with endocrinology and planned fine needle aspiration biopsy. (2) Hypercholesterolemia: Code(s): E78.00 - Pure hypercholesterolemia, unspecified Category: Medical Plan: Avoid fried foods, chicken skin, eggs, butter margarine, pastries and meat. Be it pork or beef they have a lot of cholesterol patient presently not on any cholesterol medication (3) COPD (chronic obstructive pulmonary disease): Comment: (severe obstructive pulmonary disease - stable and controlled) May 2023 CT scan Severe bullous emphysema. Code(s): J44.9 - Chronic obstructive pulmonary disease, unspecified Category: Medical Plan: Patient on Trelegy and follows up with Pulmonary Plan History of Present Illness The patient is a 74 year old female presenting with concerns primarily related to the ongoing management of her chronic medical conditions. She has a history of Chronic Obstructive Pulmonary Disease (COPD), for which she uses Trelegy inhaler and oxygen therapy at night. The patient reported compliance with medication usage, including rinsing her mouth after inhaler use. Recently, she was seen by her merchandising consultant on January 23. She is concerned with her elevated cholesterol level, which was noted as 165 during her last blood work conducted in November. She is currently on a plant-based diet in an effort to manage this condition without medication. She has a single non-toxic thyroid nodule measuring 1.9 cm and is scheduled for a fine-needle aspiration biopsy to further evaluate this finding, following previous consultations with Endocrinology and Rheumatology. Additionally, she has a history of a positive Cologuard test with no further colon tests performed at this time. In terms of hypertension management, she has successfully reduced her blood pressure from previously being 170 mmHg to 130-140 mmHg through home monitoring and lifestyle adjustments. Health Maintenance - Current: Plant-based diet for cholesterol management. - Last mammogram: Declined. - Last bone density test: Up to date as of December 2024. - Cologuard: Positive result, follow up pending. - Thyroid monitoring: Scheduled fine-needle aspiration biopsy. - Blood pressure management: Monitoring at home successfully reduced readings. Social History - Diet: Plant-based, includes plant-based alternatives for previously consumed foods. - Blood pressure monitoring: Performed at home with noted improvements. - Oxygen therapy: Used nightly. - Exercise, housing, employment: Discussed specifics not detailed in conversation. Review of Systems - Respiratory: Reports usage of oxygen therapy and Trelegy. - Cardiovascular: Reports previously elevated blood pressure, currently managed. - Gastrointestinal: Denies any significant issues with bowel movements. - Musculoskeletal: No acute complaints discussed. - Neurological: No acute complaints discussed. - Psychological: No acute complaints discussed. Physical Exam - Cardiovascular- Auscultation performed. - Respiratory- Auscultation performed. Results - Labs: Cholesterol noted to be elevated at 165. - Tests: Previous fine needle aspiration biopsy planned for thyroid nodule; Positive Cologuard result. Plan The patient's COPD management via Trelegy inhaler and nightly oxygen therapy is to continue, encouraging compliance and reinforcing adverse effects prevention through mouth rinsing. With hypercholesterolemia, dietary intervention is pursued, with a fasting lipid profile scheduled to evaluate progress. The thyroid nodule will undergo further assessment through a planned fine-needle aspiration biopsy. At-home blood pressure monitoring will continue to ensure control. The positive Cologuard test will be monitored, with the option for further evaluation if symptoms manifest. Patient follow-ups are structured to address ongoing concerns and ensure chronic condition management remains stable. Patient was informed and verbally consented to the use of an ambient scribe for clinic note documentation during this visit. Discussion Notes During the consultation, I discussed with the patient the management approach for her chronic conditions. For her COPD, I emphasized adherence to Trelegy and nightly oxygen use, along with the benefits of ongoing symptom control and preventing complications from dysphagia. We reviewed cholesterol management, highlighting the dietary approach and planning for a fasting blood work test. We discussed the positive Cologuard result, with a recommendation for monitoring and pursuing further gastrointestinal evaluation if warranted. The patient was informed about the need for a fine-needle aspiration biopsy regarding her thyroid nodule and understood the rationale and follow-up with Endocrinology. Hypertension management was addressed through home monitoring, interpreting improvements as a positive response to lifestyle adjustments. We agreed on the necessity of contacting our office for any deviations from planned blood pressure control or emergent symptoms. Patient Instructions - Continue taking Trelegy as prescribed, and rinse your mouth after each use. - Use oxygen therapy every night as recommended. - Follow the plant-based diet diligently and monitor your cholesterol through scheduled fasting blood tests. - Keep track of your blood pressure at home and notify me for readings consistently over 140 mmHg. - Proceed with the fine-needle aspiration biopsy for the thyroid nodule as planned. - Follow up as scheduled, and contact me should any new symptoms arise, especially related to bowel movements or if you experience difficulties breathing. - Ensure follow-up with endocrinology and pulmonology as per their recommendations. - Reach out for any unusual or concerning symptoms. Orders: Orders Free T4 (Free Thyroxine) Today E78.00 - Pure hypercholesterolemia, unspecified Lipid Panel Today E78.00 - Pure hypercholesterolemia, unspecified Comprehensive Met. Panel Today E78.00 - Pure hypercholesterolemia, unspecified Complete Blood Count Auto Diff Today E78.00 - Pure hypercholesterolemia, unspecified Thyroid Stimulating Hormone Today E78.00 - Pure hypercholesterolemia, unspecified
== END 2025-03-03 11:26 | disposition home or self-care (01) ==
PROVIDERS: PCP Internal Medicine; Visit Provider Internal Medicine
DX: E04.2 Nontoxic multinodular goiter (principal); E78.00 Pure hypercholesterolemia, unspecified; J44.9 Chronic obstructive pulmonary disease, unspecified

== ENCOUNTER → 2025-03-03 10:43 | Outpatient (BNVA) | payer MEDICARE, SELFPAY | PROVIDERS: PCP Internal Medicine; Visit Provider Internal Medicine | DX: E78.00 Pure hypercholesterolemia, unspecified (principal); J44.9 Chronic obstructive pulmonary disease, unspecified; E04.2 Nontoxic multinodular goiter; Z87.891 Personal history of nicotine dependence | CPT/HCPCS: 96127; 99212 ==

== ENCOUNTER 2025-03-12 10:51 | Outpatient (REF) | payer MEDICARE, SELFPAY ==
--- NOTE | 2025-03-12 11:23 | PM.PROC ---
Brief Operative Note Date of procedure: 03/12/25 Pre-op diagnosis: left lower 1.9 cm thyroid nodule FNA biopsy - cancelled Post-op diagnosis: other Procedure: THYROID PROCEDURE NOTE Cancelled FNA ? OPERATORS: Dr. Maine Izquierdo ? INDICATION: thyroid nodules - cancelled FNA ? DESCRIPTION OF PROCEDURE: The indications for FNA (to assess for malignancy) were reviewed with the patient in detail. Potential complications (e.g., bleeding, infection, damage to local structures, absence of clear diagnosis after FNA) were reviewed. Alternatives to FNA including conservative observation or surgery were described. The patient understood and agreed to proceed. This was documented by the signing of the written informed consent form. We tried to identify the nodule of interest using ultrasound (14 MHz linear array probe) however in the left lobe no nodule was identified, gland appears heterogenous and what might have been identified previously on thyroid US was likely a pseudonodule. Explained to the patient that we will not be proceeding with FNA. PLAN: Will follow up patient in clinic after surveillance US in 1 year. Maine Izquierdo MD Endocrinology Attending
== END 2025-03-12 10:52 | disposition home or self-care (01) ==
LOC: HO.US 10:51
PROVIDERS: PCP Internal Medicine; Visit Provider Student in an Organized Health Care Education/Training Program
DX: Z13.89 Encounter for screening for other disorder (principal)

== ENCOUNTER → 2025-03-12 10:51 | Outpatient (BNV) | payer MEDICARE, SELFPAY | PROVIDERS: PCP Internal Medicine; Visit Provider Student in an Organized Health Care Education/Training Program | DX: E07.89 Other specified disorders of thyroid (principal) | CPT/HCPCS: 76536 ==

== ENCOUNTER 2025-03-26 10:49 | Outpatient (AMB) | payer MEDICARE, SELFPAY ==
[2025-03-26 11:06] VITALS: BP 130/80; PULSE 69; O2SAT 96; BMI 18.9
--- NOTE | 2025-03-26 11:06 | A.OFFVIS_ITS ---
Vital Signs 03/26/25 11:06 Height 5 ft 4 in Weight 110 lb 3.698 oz BMI 18.9 BP 130/80 Blood Pressure Location Lt brachial Position Sitting Pulse 69 Pulse Source Pulse Oximeter Pulse Oximetry (%) 96 Oxygen Delivery Method Room Air Intake Visit Reasons: COPD Intake Note: pt is here for follow up and states she has gotten sick again in between appt again, this time she had blood tinged sputum and also bloody nasal discharge. Why has she been getting sick so often? 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 After 4 months She is doing very. Well and remains stable However a few weeks ago she did get upper respiratory symptoms, and also had mild nosebleed. It Got controlled by itself . She does not take. Aspirin or and the anticoagulants Currently she is doing well and breathing is stable with mild intermittent cough. She uses Trelegy inhaler once a day. And hardly needs to use Combivent Respimat., which she uses as a rescue inhaler. [facility] Medical History Multinodular goiter (nontoxic) Bronchitis COPD exacerbation Positive colorectal cancer screening using Cologuard test Personal history of nicotine dependence Quit smoking within past year Dyspnea on minimal exertion Tobacco abuse History of pneumothorax (~2018) Hypoxemia requiring supplemental oxygen COPD (chronic obstructive pulmonary disease) Surgical History Hx of colonoscopy History of tubal ligation (~1979) History of lumpectomy of left breast (~2012) History of tonsillectomy History of lung surgery (~2018) Family History Mother Breast cancer Father Cancer Social History Housing: Apartment Alcohol intake: never Patient Tobacco Use Status: Former Tobacco user Tobacco use type: Cigarette Cigarette Packs Per Day: 1 Cigarettes Per Day: 20.0 Years Smoked: 55 e-Cigarette/Vaping Use: Never Used Second Hand Smoke Exposure: Yes service: No Current occupational status: retired Cognitive needs: No Hearing needs: No Vision needs: Yes Review of Systems Const All systems reviewed & are unremarkable except as noted in HPI and below Eyes Reports no additional complaints ENT Reports no additional complaints Card Denies chest pain, Denies irregular heart rhythm and Denies leg edema Resp Reports as per HPI GI Reports no additional complaints Reports no additional complaints Musc Reports no additional complaints Skin/Breast Reports system reviewed and no additional complaints, except as documented Neuro Reports no additional complaints Psych Reports no additional complaints Endo Reports no additional complaints Physical Exam Vital Signs: Last Vital Signs Pulse 69 03/26/25 11:06 BP 130/80 03/26/25 11:06 Pulse Ox 96 03/26/25 11:06 Oxygen Delivery Method Room Air 03/26/25 11:06 BMI result Body Mass Index 18.9 Const Other: Patient is of a thin build and looks comfortable, active . General: comfortable, alert and awake; No no acute distress (SHE IS VISIBLY SHORT OF BREATH, WHICH IS IMPROVED WITH O2.) Orientation/consciousness: patient oriented x3 HEENT Head: Yes normal to inspection General nose exam: No nasal polyps present, No nasal discharge present and Other nasal findings present (No active bleeding site was noted) Face and sinus: Yes sinuses nontender Mouth: oropharynx normal Teeth and gingiva: other (Multiple fillings and if you extractions are noted) Throat: Yes posterior oropharynx normal Eyes General: appearance normal, both eyes and all related structures Neck Neck: Yes normal visual inspection, Yes no lymphadenopathy, Yes trachea midline and Yes no JVD Thyroid: Thyroid normal Chest Chest palpation & inspection: normal inspection of the chest, normal palpation of entire chest wall and no tenderness Resp Other: Percussion note hyper-resonant on both sides. Breath sounds are very distant with prolonged expiratory phase but equal on both sides. No wheezes rhonchi or crepitations are heard today. Cardio Palpation: normal PMI Rate: regular rate Rhythm: regular rhythm Heart sounds: no gallops and no murmurs Peripheral pulses: Peripheral pulses 2+ throughout GI Palpation (GI): Soft to palpation, nontender, No hepatosplenomegaly present and no masses Auscultation: normal bowel sounds Back/Spine/Pelvis Thoracic/Lumbar Spine: thoracic and lumbar spine normal to inspection Skin General skin exam: no rashes or lesions noted Neuro General: patient oriented x3 and no focal motor deficits Cranial nerves: Yes CN's II-XII intact bilaterally Extrem General: Yes normal to inspection, Yes no clubbing, cyanosis or edema and Yes no calf tenderness Psych Appearance: grossly normal and well kempt Speech and movement: Normal speech and movement present Results Reviewed Results Reviewed: Last LDCT of the chest in September 2024, benign class 2 Thyroid nodules were described. She was seen by viscose department worker and when she was taken in for biopsy under ultrasound no nodules were noted. Assessment & Plan Assessment & Plan (1) COPD (chronic obstructive pulmonary disease): Comment: (severe obstructive pulmonary disease - stable and controlled) May 2023 CT scan Severe bullous emphysema. Code(s): J44.9 - Chronic obstructive pulmonary disease, unspecified Category: Medical Plan: Continue to use Trelegy inhaler 1 inhalation daily Combivent Respimat 1 inhalation Q 6 hours p.r.n.. May use OTC cough syrups PRN. (2) Hypoxemia requiring supplemental oxygen: Comment: She has history of exercise induced hypoxemia. Does have O2 concentrator and also portable cylinders at home. However she has used O2 only at night and p.r.n. during the daytime. She hardly needs to use the portable unit. Code(s): R09.02 - Hypoxemia; Z99.81 - Dependence on supplemental oxygen Category: Medical Plan: CONTINUE USING OXYGEN 2 L/MINUTE AT NIGHT, AND P.R.N. DURING THE DAYTIME (3) Personal history of nicotine dependence: Comment: (former smoker, onset 19yo, x 46yrs, max1-2ppd quit for 6yr, now 1/2ppd - 40pyh) QUIT COMPLETELY SINCE 2 SINCE 2 YEARS AGO . Code(s): Z87.891 - Personal history of nicotine dependence Category: Medical Plan: COMMENDED FOR NOT GOING BACK TO SMOKING. CONTINUE ANNUAL LDCT FOR LUNG SCREENING. Coding Level of Care Code Est Pt Level 3 (70515) Diagnoses COPD (chronic obstructive pulmonary disease) J44.9 Hypoxemia requiring supplemental oxygen R09.02; Z99.81 Personal history of nicotine dependence Z87.891
== END 2025-03-26 11:25 | disposition home or self-care (01) ==
LOC: HO.HPS 10:50
PROVIDERS: PCP Internal Medicine; Visit Provider Internal Medicine
DX: J44.9 Chronic obstructive pulmonary disease, unspecified (principal); R09.02 Hypoxemia; Z99.81 Dependence on supplemental oxygen; Z87.891 Personal history of nicotine dependence
CPT/HCPCS: 99213

== ENCOUNTER → 2025-03-26 10:49 | Outpatient (BNVA) | payer MEDICARE, SELFPAY | PROVIDERS: PCP Internal Medicine; Visit Provider Internal Medicine | DX: J44.9 Chronic obstructive pulmonary disease, unspecified (principal); R09.02 Hypoxemia; Z99.81 Dependence on supplemental oxygen; Z87.891 Personal history of nicotine dependence | CPT/HCPCS: 99212 ==

== ENCOUNTER 2025-03-28 07:51 | Outpatient (REF) | payer MEDICARE, SELFPAY ==
[2025-03-28 09:40] LABS: MANUAL DIFF FLAG NO
[2025-03-28 09:45] LABS: Eosinophils Absolute Auto 0.1 X10*3/uL (0.0-0.4); Eosinophils Percent Auto 1.4 % (0-4); Hematocrit 43.6 % (37.0-47.0); Hemoglobin 14.7 g/dl (12.0-16.0); Imm Gran Abs Auto 0.02 X10*3/uL (0.00-0.03); Imm Gran Pct Auto 0.5 % (0.0-0.4); Lymphocytes Absolute Auto 1.3 X10*3/uL (1.2-4.9); Lymphocytes Percent Auto 30.4 % (20-40); Mean Corpuscular HGB Conc 33.7 g/dl (31.0-35.0); Mean Corpuscular Hemoglobin 30.9 pg (27.0-33.0); Mean Corpuscular Volume 91.8 fL (80.0-98.0); Mean Platelet Volume 9.6 fL (9.4-12.3); Monocytes Absolute Auto 0.5 X10*3/uL (0.1-1.2); Monocytes Percent Auto 11.6 % (2-11); Neutrophils Absolute Auto 2.3 x10*3/uL (2.0-8.3); Neutrophils Percent Auto 55.1 % (45-73); Platelet Count 360 X10*3/uL (160-400); Red Blood Count 4.75 X10*6/uL (4.20-5.50); White Blood Count 4.1 X10*3/uL (4.8-10.8)
[2025-03-28 10:01] LABS: Alanine Aminotransferase 9 U/L (0-31); Albumin Level 3.9 g/dL (3.5-5.0); Alkaline Phosphatase 58 U/L (39-117); Anion Gap 11 (12-20); Aspartate Amino Transferase 16 U/L (5-31); Bilirubin Total 0.6 mg/dL (0.0-1.0); Blood Urea Nitrogen 19 mg/dL (9-16); Calcium 9.2 mg/dL (8.4-10.2); Carbon Dioxide 26 mmol/L (22-29); Chloride 108 mmol/L (96-108); Cholesterol 196 mg/dL (<200); Estimated Glomerular Filt Rate > 60; Glucose Random 92 mg/dL (60-115); HDL Cholesterol 37 mg/dL (>40); LDL Cholesterol Calculated 142 mg/dL (<100); Potassium 3.9 mmol/L (3.3-5.1); Sodium 141 mmol/L (135-145); Total Protein 6.7 g/dL (6.5-8.0); Triglycerides 85 mg/dL (<150)
[2025-03-28 10:15] LABS: Free T4 (Free Thyroxine) 1.12 ng/dL (0.71-1.85); Thyroid Stimulating Hormone 1.55 uIU/mL (0.32-4.0)
== END 2025-03-28 07:52 | disposition home or self-care (01) ==
LOC: HO.10HDL 07:51
PROVIDERS: Visit Provider Internal Medicine
DX: E78.00 Pure hypercholesterolemia, unspecified (principal)
CPT/HCPCS: 36415; 80053; 80061; 84439; 84443; 85025

== ENCOUNTER 2025-09-29 09:48 | Outpatient (AMB) | payer MEDICARE, SELFPAY ==
--- NOTE | 2025-09-29 10:01 | MHC.OFFVIS ---
Vital Signs 09/29/25 10:02 Height 5 ft 4 in Weight 117 lb 15.157 oz BMI 20.2 BP 122/82 Blood Pressure Location Lt brachial Position Sitting Pulse 65 Pulse Oximetry (%) 93 Oxygen Delivery Method Room Air Intake Visit Reasons: COPD Intake Note: pt is here for follow up and states her breathing is off and sometimes it hurts in the center of chest with breathing on/off, Trelegy is too expensive and looking for alternative Head Bucker Required: No Utilities Service Investigator: Utilities Service Investigator offered & declined Allergies No Known Allergies (No Known Allergies*) Allergy (Verified 09/29/25 10:13) Medication List - Last Reconciled 09/29/25 by Bhakti Garcia MD [id number] 100-62.5-25 mcg (Trelegy Ellipta) 1 ea PO DAILY ipratropium-albuterol 20-100 mcg/actuation (Combivent Respimat) 1 puff inhalation Q6H PRN Do you need a note to return to daycare/school/sports/work: No HPI HPI COPD: Details: 75 YEARS OLD, PLEASANT FEMALE, IS BEING FOLLOWED UP FOR ADVANCED COPD . SHE COMES EVERY 6 MONTHS. HAS BEEN FAIRLY STABLE BUT DOES COMPLAIN OF INTERMITTENT DISCOMFORT IN MID CHEST, ALONG WITH INCREASED SHORTNESS OF BREATH. SHE HAS HAD NO DEFINITE RESPIRATORY INFECTIONS. CURRENTLY NOT SMOKING. SHE DOES PARTICIPATE IN ANNUAL LUNG SCREENING PROGRAM. [facility] Medical History Multinodular goiter (nontoxic) Bronchitis COPD exacerbation Positive colorectal cancer screening using Cologuard test Personal history of nicotine dependence Quit smoking within past year Dyspnea on minimal exertion Tobacco abuse History of pneumothorax (~2018) Hypoxemia requiring supplemental oxygen COPD (chronic obstructive pulmonary disease) Surgical History Hx of colonoscopy History of tubal ligation (~1979) History of lumpectomy of left breast (~2012) History of tonsillectomy History of lung surgery (~2018) Family History Mother Breast cancer Father Cancer Social History Housing: Apartment Alcohol intake: never Patient Tobacco Use Status: Former Tobacco user Tobacco use type: Cigarette Cigarette Packs Per Day: 1 Cigarettes Per Day: 20.0 Years Smoked: 55 e-Cigarette/Vaping Use: Never Used Second Hand Smoke Exposure: Yes service: No Current occupational status: retired Cognitive needs: No Hearing needs: No Vision needs: Yes Review of Systems Const All systems reviewed & are unremarkable except as noted in HPI and below Eyes Reports no additional complaints ENT Reports no additional complaints Card Denies chest pain, Denies irregular heart rhythm and Denies leg edema Resp Reports as per HPI GI Reports no additional complaints Reports no additional complaints Musc Reports no additional complaints Skin/Breast Reports system reviewed and no additional complaints, except as documented Neuro Reports no additional complaints Psych Reports no additional complaints Endo Reports no additional complaints Physical Exam Vital Signs: Last Vital Signs Pulse 65 09/29/25 10:02 BP 122/82 09/29/25 10:02 Pulse Ox 93 09/29/25 10:02 Oxygen Delivery Method Room Air 09/29/25 10:02 BMI result Body Mass Index 20.2 Const Other: Patient is of a thin build and looks comfortable, active . General: comfortable, alert and awake; No no acute distress (SHE IS VISIBLY SHORT OF BREATH, WHICH IS IMPROVED WITH O2.) Orientation/consciousness: patient oriented x3 HEENT Head: Yes normal to inspection General nose exam: No nasal polyps present, No nasal discharge present and Other nasal findings present (No active bleeding site was noted) Face and sinus: Yes sinuses nontender Mouth: oropharynx normal Teeth and gingiva: other (Multiple fillings and if you extractions are noted) Throat: Yes posterior oropharynx normal Eyes General: appearance normal, both eyes and all related structures Neck Neck: Yes normal visual inspection, Yes no lymphadenopathy, Yes trachea midline and Yes no JVD Thyroid: Thyroid normal Chest Chest palpation & inspection: normal inspection of the chest, normal palpation of entire chest wall and no tenderness Resp Other: Percussion note hyper-resonant on both sides. Breath sounds are very distant with prolonged expiratory phase but equal on both sides. No wheezes rhonchi or crepitations are heard today. Cardio Palpation: normal PMI Rate: regular rate Rhythm: regular rhythm Heart sounds: no gallops and no murmurs Peripheral pulses: Peripheral pulses 2+ throughout GI Palpation (GI): Soft to palpation, nontender, No hepatosplenomegaly present and no masses Auscultation: normal bowel sounds Back/Spine/Pelvis Thoracic/Lumbar Spine: thoracic and lumbar spine normal to inspection Skin General skin exam: no rashes or lesions noted Neuro General: patient oriented x3 and no focal motor deficits Cranial nerves: Yes CN's II-XII intact bilaterally Extrem General: Yes normal to inspection, Yes no clubbing, cyanosis or edema and Yes no calf tenderness Psych Appearance: grossly normal and well kempt Speech and movement: Normal speech and movement present Assessment & Plan Assessment & Plan (1) COPD (chronic obstructive pulmonary disease): Comment: (severe obstructive pulmonary disease - stable and controlled) May 2023 CT scan Severe bullous emphysema. ERENDIRA GONG HAS BEEN DOING WELL WITHOUT ANY ACUTE EXACERBATIONS. THE ISSUE TODAY IS THAT SHE HAS TO PAY ALMOST 100 DOLLARS A COPAYMENT ONCE A MONTH FOR TRELEGY. SHE SHE CLAIMS THAT THIS IS TOO MUCH FOR HER. Code(s): J44.9 - Chronic obstructive pulmonary disease, unspecified Category: Medical Plan: I DID DISCUSS THE ALTERNATE INHALERS WITH HER, AND TOLD HER THAT SHE MAY END UP USING 2 INHALERS INSTEAD OF 1 AT A TIME. SUGGESTED THAT SHE COULD USE WIXELA 250-51 INHALATION B.I.D. AND THEN USE COMBIVENT RESPIMAT Q 6 HOURS PRN ( UP TO 3 TIMES A DAY) SHE WILL DISCUSS THIS COMBINATION WITH THE PHARMACY AND SEE HOW MUCH CO-PAYMENT SHE HAS TO PAY FOR THOSE. SHE WILL LET ME KNOW AND IF THIS IS MORE ECONOMICAL THEN I CAN ORDER THESE NEW INHALERS. (2) Hypoxemia requiring supplemental oxygen: Comment: She has history of exercise induced hypoxemia. Does have O2 concentrator and also portable cylinders at home. However she has used O2 only at night and p.r.n. during the daytime. She hardly needs to use the portable unit. Code(s): R09.02 - Hypoxemia; Z99.81 - Dependence on supplemental oxygen Category: Medical Plan: USE O2 2 L/MINUTE AT NIGHT . AND P.R.N. DURING THE DAYTIME IF SHE DEVELOPS RESPIRATORY DISTRESS. (3) Personal history of nicotine dependence: Comment: (former smoker, onset 19yo, x 46yrs, max1-2ppd quit for 6yr, now 1/2ppd - 40pyh) QUIT COMPLETELY SINCE 2 YEARS AGO . Code(s): Z87.891 - Personal history of nicotine dependence Category: Medical Plan: COMMENDED FOR NOT SMOKING. ADVISED THAT SHE SHOULD CONTINUE TO HAVE ANNUAL LUNG SCREENING. Coding Level of Care Code Est Pt Level 3 (81042) Diagnoses COPD (chronic obstructive pulmonary disease) J44.9 Hypoxemia requiring supplemental oxygen R09.02; Z99.81 Personal history of nicotine dependence Z87.893
[2025-09-29 10:02] VITALS: BP 122/82; PULSE 65; O2SAT 93; BMI 20.2
--- OUTSIDE RECORDS SUMMARY | 2025-09-29 11:12 | XMS_ITS ---
Author Name [facility] Organization Unknown Care Team Organization Name Specialty Phone Email Start Date End Da te [facility] Termed, PROVIDER Primary Care 09/27/202206/20
--- OUTSIDE RECORDS SUMMARY | 2025-09-29 11:13 | XMS_ITS | Clinical Summary ---
Author Organization [facility] Address [address] [address] Phone Care Team Providers Care Torpedoman'S Mate Name Role Phone Chelsy Gallagher MD Primary Care Provider [phone] Allergies No known active allergies Medications ISRA ELLIPTA 100-62.5-25 mcg inhalation powder INHALE 1 PUFF BY MOUTH DAILY FOR COPD 02/23/2024 Active Active Problems No known active problems Immunizations Immunization Administration Dates Next Due Tdap 02/29/2024 Social History Tobacco Use Types Packs/Day Years Used Date Smoking Tobacco: Never Smokeless Tobacco: Never Education Answer Date Recorded Are you interested in more education? Not on kadeem e 03/01/2024 Are you concerned about learning? Not on file 03/01/2024 No 03/01/2024 No 03/01/2024 Digital Access Answer Date Recorded No 03/01/2024 No 03/01/2024 Reliable internet access at home? Not on file 03/01/2024 Device with a working camera? Not on file Comments Unknown Sex and Gender Information Value Date Recorded Sex Assigned at Not on file Legal Sex Female 4:24 PM EDT Gender Identity Not on file Sexual Orientation Not on file Last Filed Vital Signs Vital Sign Reading Time Taken Comments Blood Pressure 157/75 03/14/2024 8:06 AM EDT Pulse 83 03/14/2024 8:06 AM EDT Temperature 37.1 C (98.7 F) 03/14/2024 8:06 AM EDT Respiratory Rate 18 03/14/2024 8:06 AM EDT Oxygen Saturation 96% 03/14/2024 8:06 AM EDT Inhaled Oxygen Concentration - - Weight 54.4 kg (120 lb) 03/14/2024 8:06 AM EDT Height 160 cm (5' 3 ) 03/10/2024 1:34 PM EDT Body Mass Index 21.26 03/10/2024 1:34 PM EDT Plan of Treatment Health Maintenance Due Date Last Done Comments LIPID PANEL 1952 DEPRESSION SCREENING 1964 HEPATITIS C SCREENING 1970 MAMMOGRAM 1992 COLOGUARD 1997 COLONOSCOPY 1997 COLORECTAL CANCER SCREENING 1997 FIT TEST 1997 FOBT 1997 SIGMOIDOSCOPY 1997 VIRTUAL COLONOSCOPY 1997 ZOSTER VACCINES (1 of 2) 2002 OSTEOPOROSIS SCREENING INITIAL (ONE-TIME) 2017 INFLUENZA VACCINE (#1) 2025 , 09/01/2022, 10/08/2021, Additional history exists COVID-19 VACCINE (2024- season) 2025 10/24/2023, 09/01/2022, 09/20/2021, Additional history exists RSV VACCINE (1 - 1-dose 75+ series) 2027 Adult Td,Tdap Booster 02/28/2034 02/29/2024 , 07/10/2013, 10/03/2006 PNEUMOCOCCAL VACCINES (50+ years) Completed 07/20/2020, 05/24/2018, 01/14/2004 SMOKING STATUS SCREENING (Once After 26 Yrs) Completed 03/14/2024 HEPATITIS A VACCINES Aged Out No long er eligible based on patient's age to complete this topic HIB VACCINES Aged Out No longer eligi ble based on patient's age to complete this topic MENINGOCOCCAL VACCINES (ACWY) Aged Out No longer eligible based on patient's age to complete this topic MENINGOCOCCAL VACCINES (B) Aged Out N o longer eligible based on patient's age to complete this topic Medical [id number] MEDICARE PART A & B [employer] MED[employer] SUPPLEMENT MEDICARE PART A & B [employer] SUPPLEMENT MEDICARE PART A & B [employer] SUPPLEMENT MEDICARE PART A & B [employer] SUPPLEMENT MEDICARE PART A & B [employer] SUPPLEMENT MEDICARE PART A & B [employer] SUPPLEMENT Care Teams Torpedoman'S Mate Relationship Specialty Start Date End Date Chelsy Gallagher MD [address] [place] [address] [place] [id number] PCP - General Internal Medicine 02/29/24 Additional Source Comments The information contained in this document represents components of the legal health record. It is not the complete legal health record.[facility]
== END 2025-09-29 10:35 | disposition home or self-care (01) ==
LOC: HO.HPS 09:49
PROVIDERS: PCP Internal Medicine; Visit Provider Internal Medicine
DX: J44.9 Chronic obstructive pulmonary disease, unspecified (principal); R09.02 Hypoxemia; Z99.81 Dependence on supplemental oxygen; Z87.891 Personal history of nicotine dependence
CPT/HCPCS: 99213

== ENCOUNTER → 2025-09-29 09:48 | Outpatient (BNVA) | payer MEDICARE, SELFPAY | PROVIDERS: PCP Internal Medicine; Visit Provider Internal Medicine | DX: J44.1 Chronic obstructive pulmonary disease with (acute) exacerbation (principal); J40 Bronchitis, not specified as acute or chronic; R09.02 Hypoxemia; Z87.891 Personal history of nicotine dependence | CPT/HCPCS: 99212 ==